=== PATIENT | female | born 1985 | race Caucasian/White ===

== ENCOUNTER 2023-07-13 08:00 | Outpatient (RCR) | payer OTHER, SELFPAY ==
--- NOTE | 2023-07-13 09:00 | BH.SGPN.GN ---
Behaviors/Verbalizations/Mental Status: [] Eye contact is good. Motor activity is appropriate. Appearance is casual. Speech is Appropriate. Mood is anxious. Affect is congruent. Thoughts are linear and logical. No evidence of psychosis. Reviewed daily check in sheet and pt reports 1/5 for suicidal thoughts and 0/5 for intent. Completed [place] Suicide Screening and risk assessment prior to group. Client Response/Progress/Benefit: [] Pt participated when prompted. Attentive. Today is pt's first day in IOP. Daily symptom tracker notes 5/5 for anxiety and 2/5 for self-harm urges. Pt briefly introduced herself to the group. Shared that she wants to learn more effective ways to manage her depressive episodes. She did not elaborate much. Limited progress noted as this was her first day in IOP. Group provided support, empathy, and gave suggestions/feedback for her first day in IOP which was beneficial. Will continue in IOP to maintain safety, increase healthy coping, and prevent decompensation. Narrative Note: []
--- NOTE | 2023-07-13 10:10 | BH.SGPN.GN ---
Behaviors/Verbalizations/Mental Status: [Patient was alert and oriented, casually dressed and groomed. Eye contact was limited, motor activity normal, speech within normal limits. Affect congruent, mood reserved. Thoughts linear, logical, no signs of hallucinations or delusions. ] Client Response/Progress/Benefit: [This is the patient?s first group and was a little reserved. However, the patient used active listening and gave feedback during group discussion when asked. Patient identified that she has scattered thoughts and tends communicate by yelling or blaming others when in a conflict. Patient worked well in her group and identified the communication style they were assigned and shared she thinks she uses two specific styles. Patient stated she believes she is mainly passive because she is very caring, people walk on her, and she does not like confrontation. Patient said she can also be passive aggressive because she does not like [id number] confrontation but will go to someone else to talk about her feelings. She shared that she doesn?t communicate her feelings well and gets frustrated by this. Patient appeared to benefit from increasing awareness on each communication style and learning which ones she connected with. Patient will continue IOP treatment to help define and maintain safety. ] Narrative Note: []
--- NOTE | 2023-07-13 11:05 | BH.SGPN.GN ---
Behaviors/Verbalizations/Mental Status: []Pt alert and oriented, neatly dressed and groomed. Eye contact good. Motor activity appropriate. Speech within normal limits. Affect congruent, mood anxious. Thoughts linear, logical, no signs of hallucinations or delusions. Client Response/Progress/Benefit: [] Pt responded well to session AEB Pt listening attentively to others and providing input during group discussion on the pay offs and costs of the different communication styles. Pt able to connect how current communication style impacts mental health. Pt engaged in activity, but was more passive, which is not uncommon on a first day. Connected with peers comments about importance of using assertive communication. Pt reported she wants to work on being respectful to others but still not letting people ?walk on top of me.? Pt seemed to benefit from increasing awareness of healthy strategies to improve communication. Will continue IOP tx to prevent decompensation, improve daily functioning, and maintain safety. Narrative Note: []
--- NOTE | 2023-07-13 11:43 | BH.COMM ---
Communication Note Communication with Client Communication Note: Met with pt to complete initial paperwork and administer the CSSR-S and risk assessment. No significant changes since admission. Pt is high risk per the CSSR-S as pt has had multiple suicide attempts in her lifetime and reports having thoughts suicide with methods in the past month. Pt denies any active SI today and shared she is doing ?a little bit better.? Pt reports willingness to bring in her extra medications and therapist will deactivate them. Pt has history of ?a lot? of suicide attempts in her lifetime including attempts by overdose and by cutting. Pt also self-harms as a way to get emotional release, but pt has not self-harmed since January. Pt also reports writing suicide notes, collecting pills, and history of self-harm by hitting herself. Pt reports ability to control her thoughts with less difficulty now and ability to maintain safety. No active SI today. Reviewed case with Dr. Dodd and pt will be admitted to [facility] level of care with a diagnosis of Bipolar I disorder, most recent episode depressed F31.4.
--- NOTE | 2023-07-13 14:41 | BH.MTP_ITS ---
[facility] Treatment Plan Patient Information Program Physician:: Dr. Sophia Dodd Primary Therapist:: Fabi SILVA Psychiatric Diagnoses Psychiatric Diagnoses:: Bipolar 1 disorder, most recent episode depression, severe without psychosis F 31.4; Generalized anxiety disorder; Cluster B traits; ADHD; History of PTSD; Alcohol use disorder in full remission for 6 years Diagnosis Code(s):: F 31.4 Estimated LOS Estimated LOS (in weeks):: 6 Problem/Goal #1 Problem/Goal #1 Stated Goal:: Pt will increase mood stability by reducing hopelessness, worthlessness, guilt, and suicidal ideations. Description of Barriers: Pt has history of multiple suicide attempts that have been highly lethal. Pt had a miscarriage about six months ago and since then pt has been engaging in risky sexual behavior, having more suicidal ideations, and reports constant triggers of grief. Pt also has history of self-harm by cutting and pulling out hair, but has not self-harmed in over three months. Functional Impact: Pt is a 37-year-old female with a history of Bipolar I d isorder, TORSTEN, and alcohol use disorder in full remission. Pt was referred to [facility] tx by her outpatient psychiatrist, Dr. Limon, due to worsening depression with fleeting SI. Pt reports having fleeting SI with thoughts of methods, but pt shared I typically always reach out. Pt reports decompensation for the past several months, but has had mental health struggles for years. Currently endorses a depressed mood, decreased appetite, decreased sleep, low energy, anhedonia, hopelessness, and worthlessness. Pt also reports constant anxiety, grief, and more impulsive behaviors. Pt's mental health symptoms are currently impacting her overall functioning and relationships. Pt not currently benefitting from traditional outpatient counseling alone. Goal Relevant Strengths/Supports: Pt is active in AA and has a sponsor she meets with weekly. Pt has been sober for 6 years. Pt lives with her parents who pt is close with and pt has several good friends she can talk to. Pt is connected with outpatient psychiatry and counseling. Objectives Objective #1: Stated Objective: Pt will learn and utilize 2-3 healthy coping strategies to better manage depressive symptoms and reduce suicidal ideations as shown by a decrease of DMS-5 symptoms for depression and SI. Interventions: Through group and individual sessions, therapist will help pt identify triggers and warning signs of depression and guilt including emotional, physical, and behavioral changes. Therapist will teach pt various coping skills to manage symptoms and give pt tangible resources to use to regulate emotions. Therapist will use cognitive restructuring techniques and help pt gain awareness of negative thoughts that reinforce guilt and depression. Therapist will provide psychoeducation on maintenance cycles and help pt learn ways to break unhealthy maintenance cycles. Therapist will help pt incorporate behavioral activation and assist pt in setting SMART goals. Discharge Criteria: Pt will have met this goal when can report learning and using at least 2 coping skills to manage depressive symptoms and reduce isolation. Additionally, pt will have met this goal when pt's DSM-5 scores for depression decrease. Target Date: 08/24/23 Review Date: 08/03/23 Status: open Objective #2: Stated Objective: Pt will identify 2 triggers and 2 coping skills to use when pt experiences mood dysregulation and has increased urges to engage in unhealthy, impulsive coping skills. Interventions: Through individual and group counseling pt will be provided with education on healthy coping skills to manage mood symptoms, impulse, and crisis behaviors. Therapist will provide information on healthy alternatives to emotion release. Individual therapist will teach pt DBT techniques to increase emotional regulation and mindfulness. Therapist will also engage pt to use self- compassion while working to change behaviors. Discharge Criteria: pt will have accomplished this goal when pt can identify at least 2 triggers and 2 coping skills to increase mood stability and reduce unhealthy action urges. Target Date: 08/24/23 Review Date: 08/03/23 Status: open Problem/Goal #2 Problem/Goal #2 Stated Goal:: Will reduce impulsivity and anxiety through increasing emotional regulation and distress tolerance skills Description of Barriers: Pt has history of multiple suicide attempts that have b een highly lethal. Pt had a miscarriage about six months ago and since then pt has been engaging in risky sexual behavior, having more suicidal ideations, and reports constant triggers of grief. Pt also has history of self-harm by cutting and pulling out hair, but has not self-harmed in over three months. Functional Impact: Pt is a 37-year-old female with a history of Bipolar I disorder, TORSTEN, and alcohol use disorder in full remission. Pt was referred to [facility] tx by her outpatient psychiatrist, Dr. Limon, due to worsening depression with fleeting SI. Pt reports having fleeting SI with thoughts of methods, but pt shared I typically always reach out. Pt reports decompensation for the past several months, but has had mental health struggles for years. Currently endors es a depressed mood, decreased appetite, decreased sleep, low energy, anhedonia, hopelessness, and worthlessness. Pt also reports constant anxiety, grief, and more impulsive behaviors. Pt's mental health symptoms are currently impacting her overall functioning and relationships. Pt not currently benefitting from traditional outpatient counseling alone. Goal Relevant Strengths/Supports: Pt is active in AA and has a sponsor she meets with weekly. Pt has been sober for 6 years. Pt lives with her parents who pt is close with and pt has several good friends she can talk to. Pt is connected with outpatient psychiatry and counseling. Objectives Objective #1: Stated Objective: Pt will identify 2-3 anxiety triggers and 2 coping skills to use when feeling anxious to manage anxiety as shown by reducing DSM-5 scores for anxiety. Interventions: Therapist will provide education on anxiety, avoidance behaviors, and maintenance cycles. Therapist will help pt explore personal symptoms and warning signs of anxiety. Therapist will teach pt coping skills to improve emotional regulation, mindfulness, and distress tolerance to help pt cope with anxiety in the moment. Discharge Criteria: Pt will have accomplished this goal when she can identify at least 2 triggers and report using 2 coping skills to manage anxiety. Additionally, pt will have accomplished this goal AEB reduction of DSM-5 scores for anxiety. Target Date: 08/24/23 Review Date: 08/03/23 Status: open Objective #2: Stated Objective: pt will identify 2-3 cognitive distortions that lead to rumination and learn 2-3 ways to manage these thoughts to better manage anxiety. Interventions: Therapist will provide education on the most common cognitive distortions and teach pt the connection between thoughts, emotions, and feelings. Therapist will assist pt in identifying, challenging, and replacing dysfunctional thoughts with positive, more realistic thoughts. Therapist will use CBT and DBT techniques to help pt gain awareness of thinking errors and learn how to more effectively handle negative thoughts. Discharge Criteria: Pt will have accomplished this goal when can identify at least 2 cognitive distortions and at least 2 coping skills to manage negative thoughts. Target Date: 08/24/23 Review Date: 08/03/23 Status: open
--- NOTE | 2023-07-14 09:00 | BH.SGPN.GN ---
Behaviors/Verbalizations/Mental Status: [] Eye contact is fair. Motor activity is appropriate. Appearance is casual. Speech is Appropriate. Mood is anxious. Affect is constricted. Thoughts are linear and logical. No evidence of psychosis. Reviewed daily check in sheet and no reports of suicidal ideations or intent. Client Response/Progress/Benefit: [] Pt participated at times during the group discussion. Attentive. Client reported mental health positive as coming to IOP program. Client reported additional mental health win as being able to sleep in and rest, which she noted has been a struggle for her. Client identified stressor as taking time to work on herself. Progress noted. Benefited from group support, encouragement, and feedback. Will continue in IOP to prevent decompensation, stabilize mood, and increase healthy coping.
--- NOTE | 2023-07-14 09:00 | BH.SGPN.GN ---
Behaviors/Verbalizations/Mental Status: [Patient was alert and oriented, casually dressed and groomed. Eye contact was good, motor activity normal, speech within normal limits. Affect congruent, mood content. Thoughts linear, logical, no signs of hallucinations or delusions. Reviewed Patients symptom tracker and all categories within normal limits.] Client Response/Progress/Benefit: [Patient was engaged and open to the discussion. Patient reports her mood to be ?anxious?. Patient stated her first win was coming to the program and starting it. She reports she is feeling a little anxiety from it. A second win was that she got to sleep in today. She normally wakes up at 4:30 for work. Patient?s stressor is that because she is attending the program, she is missing 3 days of work every week. Patient said this puts a stress on her funds because her FMLA was approved but she is not getting paid. Patient reminds herself that she really thinks she needs the program so it will be worth it. Patient quiet and respectful in group and actively listened to other group members talk about their mental wins and stressors. Patient benefited from the discussion by listening to feedback. Patient will continue with IOP treatment to help develop healthy skills, promote mood stability, and improve distress tolerance.] Narrative Note: []
--- NOTE | 2023-07-14 10:15 | BH.SGPN.GN ---
Behaviors/Verbalizations/Mental Status: [] Eye contact is good. Motor activity is appropriate. Appearance is casual. Speech is Appropriate. Mood is depressed. Affect is congruent. Thoughts are linear and logical. No evidence of psychosis. Client Response/Progress/Benefit: [] Pt did not participate in group discussions. Attentive during psychoeducation. Attentive during group discussion on types of support, benefits of support, and obstacles to utilizing support. Pt reports their primary supports are her psychiatrist, therapist, AA, mu-ism, friends, family, and her pets. Also able to verbalize obstacles that tool procurement coordinator the way to utilizing support. Participated in experiential activity and was able to connect this activity to group topic. Benefited from increased awareness of the benefits and importance of maintaining a balanced support system. Will continue in IOP to prevent decompensation, stabilize mood,maintain safety, and increase healthy coping skills. Narrative Note: []
--- NOTE | 2023-07-14 11:17 | BH.SGPN.GN ---
Behaviors/Verbalizations/Mental Status: []Client alert and oriented, casually dressed and groomed. Eye contact good. Motor activity appropriate. Speech within normal limits. Affect congruent, mood depressed and anxious. Thoughts linear, logical, no signs of hallucinations or delusions. Client Response/Progress/Benefit: [] Client was an active participant throughout AEB contributing to small group discussion, participating in the activity, and taking notes. Client provided input during discussion on the types of support our supports can provide. Able to identify the types of supports provided by current support system. Client reported gaining awareness that they could benefit from more emotional supports. Shared this will help to feel more needed by supports, increase comfort levels and feel connected. Client identified steps to achieve this as challenging herself to reach out and communicate more openly with supports. Client seemed to benefit from identifying the types of support and areas client could benefit from improving. Pt recommended to continue IOP tx to improve mood management, promote healthy coping skill application, and increase engagement with supports. Narrative Note: []
== END 2023-07-15 23:59 ==
LOC: BHIOP 08:00
PROVIDERS: Referring Provider Psychiatry & Neurology Psychiatry; Visit Provider Psychiatry & Neurology Psychiatry
DX: F31.4 Bipolar disorder, current episode depressed, severe, without psychotic features (principal); F41.1 Generalized anxiety disorder; F90.9 Attention-deficit hyperactivity disorder, unspecified type; F43.10 Post-traumatic stress disorder, unspecified; F10.91 Alcohol use, unspecified, in remission
CPT/HCPCS: S9480; 90853

== ENCOUNTER 2023-07-17 09:20 | Outpatient (RCR) | payer OTHER, SELFPAY ==
--- NOTE | 2023-07-19 09:00 | BH.SGPN.GN ---
Behaviors/Verbalizations/Mental Status: [] Pt alert and oriented, neatly dressed and groomed. Eye contact good. Motor activity appropriate. Speech within normal limits. Affect flat, mood depressed. Thoughts linear, logical, no signs of hallucinations or delusions. Reviewed pt?s symptom tracker, no risk for suicidal ideation, plan, or intent 07/19/23 Client Response/Progress/Benefit: []Pt responded somewhat well to session, quiet, but attentive and listening to peers. Pt reports feeling down this morning, but pt declined to share about her stressors and triggers. Pt also struggled with identifying her mental health wins today, but pt shared getting to IOP and doing some yard work were mental health wins. Pt appeared to benefit from group feedback and encouragement. Pt will continue IOP tx to prevent decompensation, reduce negative thinking patterns, and improve daily functioning. Narrative Note: []
--- NOTE | 2023-07-19 10:20 | BH.NA_ITS ---
Physical Data Vital Signs Pulse Rate: 95 Blood Pressure: 148/100 Height/Weight Height: 1.57 m Weight:: 90.718 kg Weight in Pounds: 200.0 lbs Current Medication Compliance Medication Compliance Do you take your medication as prescribed?: Yes Nutritional History Appetite Nutritional Instructions: Describe your appetite:: Good Additional nutritional information:: Client denies change in appetite and denies weight change. Functional Assessment Sleep Pattern Describe any problems with sleeping: Client states she sleeps between 6-8 hours per day. Sensory/Communication Assess Communication Problems Do you have difficulty understanding what people are saying?: No Medical Problems/History Metabolic Conditions Metabolic: Diabetes (type 2, last A1C 6.5) Additional History Additional comments:: ADHD, bipolar disorder Surgical History Surgical History Have you had any surgeries? If so, list type and date:: Yes (D&C) Substance Abuse Substance Abuse Please describe substance abuse in the last 30 days:: Client states she has been sober from alcohol use for 6 years. Client states she has been a cigarette smoker since age 15 and smokes about 1 pack per day. Client states she has had some substance use in the past, but denies current. Client reports drinking energy drinks almost daily, usually only 1 per day but up to 2 per day. Client states she has discussed this with her doctor and she is allowed to have 2 per day. Client states she used to drink 4-5 energy drinks per day at times. Client states if she doesn't have an energy drink, she will occasionally have coffee. Mental Status Summary Mental Status Significant Findings/Observations on Appearance and Mood:: Client is alert and oriented x 4. Client is casually groomed with good hygiene. Client is cooperative with assessment. Client makes fair eye contact. Client's voice has normal rate and volume. Client has somewhat flat affect at times, and pauses before responding to many questions. Client makes logical associations. Client denies delusions/hallucinations. Client states she has been having some SI, stating this time of the month directly after her menses she usually feels more depressed. Client denies intent/plan. Suicide Assessment Suicidal Ideation Are you currently or have you been suicidal in the past?: Yes Suicidal Intentional Rating Scale (SIRS): Suicidal thoughts (past) (client states she does have frequent SI, but denies SI this day) Physician Notification Past Psychiatric History MH Treatment Hx Past Psychiatric Medications:: Abilify, Wellbutrin (made SI worse), Remeron, Pristiq, Zoloft, others Age of first mental health symptoms: Client states she was first on Zoloft for depression around age 16-17. Client states she was diagnosed as bipolar about a year ago. Describe (age, circumstance, etc) any past hospitalizations: Most recent at [facility] in [place] with SI after a miscarriage. Client has had 2 other hospitalizations prior. Client states she has had several suicide attempts in the past, the last being an OD attempt in 2017. Current providers for mental health treatment (counselor, psychiatrist, residential case manager, etc.): Dr. Limon at [place] [id number] for psychiatry, Dr. Alejandrina Bravo for psychologist Fall Risk Assessment Age Age: Less than 60 Mental Status Mental Status: Willing & able to ask for assistance when needed Physical Status Physical Status: No problems Impairments Impairments: None Elimination Elimination: Continent AND independent Gait or Balance Gait or Balance: Walks independently Hx of Falls History of falls in the past 6 months: No known history Medications/Substances Psychotropics:: Antidepressants, Antipsychotics and Mood stabilizers Medications/substances used within the past 24 hours or ordered to administer: 3 or more of the medications/substances listed above Total Score Total Points:: 2 RN Summary of Impressions Impressions Recommendations Impressions: Psychiatric Issues: 1. Bipolar 1 disorder, most recent episode depression, severe without psychosis 2. Generalized anxiety disorder 3. Cluster B traits 4. ADHD 5. History of PTSD 6. Alcohol use disorder in full remission for 6 years 7. Financial and primary support issues Level of Care How do the client's current symptoms and functional deficits support need for this level of care?: Client was referred to IOP by outpatient psychiatrist after client called the [facility] line on 06/23 with SI. Client states I chose to come here instead of being hospitalized again. Client states she has had frequent SI since she had a miscarriage about 6 months ago. Client states she has periods of darius and depression, stating the last time she had darius was May. Client states she has been so anxious that she has been pulling out pieces of her hair on a daily basis. Client reports feeling more depressed the week after her menses, which she states is this week. Client denies SI this day, but states she does have SI frequently. Denies plan/intent. IOP will promote gains and prevent further decompensation while providing social support and skills training.
[2023-07-19 10:46] VITALS: BP 148/100; PULSE 95
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
--- NOTE | 2023-07-19 13:16 | BH.DR.ITP ---
Initial Treatment Plan Patient Information Visit Information: ADMISSION DATE: EXPECTED LOS: 4-6 weeks Problems/Symptoms Problem #1:: Depression Symptom:: Sadness, hopelessness, worthlessness, anhedonia, low energy, decreased concentration, guilt, passive thoughts of , passive suicidal ideation Problem #2:: Anxiety Symptom:: Rumination, worry, avoidance
--- NOTE | 2023-07-19 15:44 | BH.MDN_ITS ---
Multi-Disciplinary Note Note 45-min Individual: Time Started:: 11:30 Date: 07/19/23 Purpose of session/treatment goals addressed:: To gather information on pt's current stressors, symptoms, triggers, and tx goals. Another goal was to build rapport and provide emotional support. Eye Contact:: Fair Motor Activity:: Appropriate Appearance:: Neat Speech:: Soft Mood:: Depressed Affect:: Flat Thoughts:: Linear, Logical and No evidence of hallucinations/delusions noted Staff Interventions:: CBT techniques, mindfulness skills, rapport building, strengths perspective, treatment planning, completed risk assessment / safety planning and other (provided emotional support) Client Response:: Pt responded well to session, open to meeting with therapist. Pt reports that she has been in therapy in the past and is currently seeing a therapist which pt finds helpful. Pt stated she has struggled with her mental health for years, but pt had a miscarriage several months ago and this triggered severe depression and suicidal ideations. Pt stated that not many people know about her , but her mother does. Pt does not speak with the father of the baby and since then, pt has been having sex with random men to fill a void. Pt stated that she has a hard time when she sees woman or hears about people. Pt shared she is very depressed, but pt has not been able to cry. Pt reported my outpatient therapist thinks I should do EMDR just to cry. Pt denies that the loss has increased urges to drink and pt maintains her sobriety. Pt is active in AA and has a sponsor she is close to. Pt also has several good friends she can talk to when she gets down. Pt shared when she gets suicidal or really depressed she will reach out. Pt also writes poetry and shared a poem with therapist. Talked about how writing can be a healthy copi ng skill, but to also remember that sometimes skills can reinforce depression or anxiety, so it is good to mix it up. Pt shared this is true for music, sometimes it helps to listen to sad songs, but there are times when it makes pt more depressed. Discussed coming up with a playlist to help pt cope with depression and to begin keeping tack of her wins through writing. Pt was receptive to these and willing to try for homework. Risks/Concerns:: Pt reports chronic suicidal ideations for years, but denies any active SI to date. Pt does admit to passive SI with thoughts of methods. Pt has removed the extra medications she had in her home and pt reports ability to keep herself safe. Pt shared she does tend to become more suicidal around her period and has been diagnosed with PMDD. Pt is future oriented today. Progress Toward Goals/Plan:: Pt's first week of IOP tx. Pt reports benefitting from the group setting so far, but pt's symptoms are unchanged. Pt reports her biggest stressor is that she had a miscarriage 6-7 months ago and pt still feels stuck. Pt has been engaging in risky sexual behavior, has in creased suicidal ideations, and reports shutting down her emotions to the point where pt has not cried. Pt endorses isolation, negative thinking patterns, and chronic SI. Pt will continue IOP tx to prevent decompensation, maintain safety, and gain healthy coping skills. Time Stopped:: 12:23
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
--- NOTE | 2023-07-20 10:10 | BH.SGPN.GN ---
Behaviors/Verbalizations/Mental Status: [] Eye contact is good. Motor activity is appropriate. Appearance is casual. Speech is Appropriate. Mood is anxious and dysthymic. Affect is congruent. Thoughts are linear and logical. No evidence of psychosis. Client Response/Progress/Benefit: [] Client was an attentive during interactive group discussions by writing notes and sharing when prompted. Attentive during psychoeducation on the six types of boundaries (physical, emotional, intellectual, sexual, time, and material) AEB note-taking. Along with peers contributed to interactive discussion on defining what a boundary is in mental health. Client along with peers identified challenges to setting boundaries which included; fear of other's response, guilt, fear of losing relationships, and not knowing how to. Client along with peers identified the benefits to setting boundaries. Client shared she struggles with setting boundaries because she feels guilty and doesn't want to hurt someone's feelings. Client benefited from increased awareness and insight on the importance/benefit to setting healthy boundaries. Will continue in IOP to improve daily functioning, increase healthy coping and reduce high-risk behaviors, and prevent decompensation. Narrative Note: []
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
--- NOTE | 2023-07-21 11:15 | BH.SGPN.GN ---
Behaviors/Verbalizations/Mental Status: []Pt alert and oriented, casually dressed and groomed. Eye contact good. Motor activity appropriate. Speech within normal limits. Affect congruent, mood anxious and depressed. Thoughts linear, logical, no signs of hallucinations or delusions. Client Response/Progress/Benefit: []Pt was an active participant in group discussions and experiential activity. Was able to identify the connection between the experimental activity and utilization of stress management skills. Pt reported feeling at times frustrated during the activity but did well to use breathing and thought challenging to manage her emotions. Attentive during psychoeducation on the 4 A's (Avoid, adapt, alter, accept) of coping with stress as well as strategies to identify stressors in which one has no control, little control, or a great deal of control over. Pt shared plans to utilize the skill of accept to begin to better manage her mental health sx and fell less hopeless regarding her ability to do so. Benefited from increased awareness of stress management strategies. Will continue in IOP to prevent decompensation, improve mood stability, and increase self-care. Narrative Note: []
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
--- NOTE | 2023-07-26 09:00 | BH.SGPN.GN ---
Behaviors/Verbalizations/Mental Status: [Patient was alert and oriented, casually dressed and groomed. Eye contact was good, motor activity normal, speech within normal limits. Affect congruent, mood anxious. Thoughts linear, logical, no signs of hallucinations or delusions. Reviewed Patients symptom tracker and the patient reports severe in anxiety/panic attacks, moderate to severe in depressed mood, agitation/irritability/anger, self-harm urges, and thoughts of suicide. The patient reported no symptoms of risk of suicide. This is above average for the patient and a therapist will follow up with this patient to ensure safety.??] Client Response/Progress/Benefit: [ Patient was engaged and open to the discussion. Patients mood is ?Anxious?. Patients first win was that she got to group without using the GPS to guide her. Going to places that she is unfamiliar with causes anxiety so that?s why this is a win. The second win is that on Monday she went to an AA meeting where she told her story to a group of people although she was nervous. The stressor was that on Monday she had a bad day at work and it ?ruined her day?. When asked how she coped with these emotions, she stated she did not and is still stuck in the ?muck? of it.?Patient was interactive and respectful with other group members about their mental wins and stressors. Patient benefited from the discussion by listening to feedback and giving input on her peer?s stressors and mental health wins. Patient will continue with IOP treatment to help develop healthy skills, promote mood stability, and improve distress tolerance.] Narrative Note: []
--- NOTE | 2023-07-26 10:10 | BH.SGPN.GN ---
Behaviors/Verbalizations/Mental Status: [] Eye contact is good. Motor activity is appropriate. Appearance is casual. Speech is Appropriate. Mood is depressed/irritable. Affect is flat. Thoughts are linear and logical. No evidence of psychosis. Client Response/Progress/Benefit: [] Pt was an active participant during group discussions and group activities. Attentive during psychoeducation. Engaged during activity in which they identified which type of foods (i.e. carbs, sugar, salt, fast food, caffeine, etc) they seek out when sad, tired, angry, rushed, anxious, etc. Pt was able to identify the impact that certain foods have on their mental health through group example which was beneficial. Increased awareness of the connection between nutrition and mental health. Will continue in IOP to prevent decompensation, maintain safety, and increase healthy coping. Narrative Note: []
--- NOTE | 2023-07-26 11:10 | BH.SGPN.GN ---
Behaviors/Verbalizations/Mental Status: []Pt alert and oriented, neatly dressed and groomed. Eye contact good. Motor activity appropriate. Speech within normal limits. Affect flat, mood depressed. Thoughts linear, logical, no signs of hallucinations or delusions. Client Response/Progress/Benefit: []Pt was an active participant throughout AEB contributing to group discussion and taking notes. Pt provided input during small group discussion on strategies to combat each factor maintaining adverse nutritional cycles. Worked with group to identify ways to foster more mindful nutritional choices. Each group participant identified one small step they could take today to begin establishing mental wellness promoting nutritional choices. Pt shared plans to?reduce her caffeine intake as pt learned today that caffeine can trigger darius. Appeared to benefit from gaining insight into mental wellness centered nutrition and identifying personal steps Pt can take to support own nutritional psychology. Recommended continued IOP tx to prevent decompensation, increase distress tolerance skills, and reduce use of unhealthy coping skills. ? Narrative Note: []
--- NOTE | 2023-07-26 15:11 | BH.MDN_ITS ---
Multi-Disciplinary Note Note 60-min Individual: Time Started:: 12:10 Date: 07/26/23 Purpose of session/treatment goals addressed:: To work on goal #1 of pt's tx plan, focusing on reducing use of unhealthy coping skills. Eye Contact:: Good Motor Activity:: Appropriate Appearance:: Casual Speech:: Soft Mood:: Anxious and Depressed Affect:: Flat Thoughts:: Linear, Logical and No evidence of hallucinations/delusions noted Staff Interventions:: thought challenging, psychoeducation on:, CBT techniques, mindfulness skills, strengths perspective and taught coping skills (Delay, distract, decide) Client Response:: Pt responded well to session, open to meeting with therapist. Pt shared that she is struggling today with increased urges to engage in risky sexual behaviors. Pt shared that she has slept with nine men in the past few weeks and all of these men she meets online. Pt shared she knows that this is dangerous, but pt stated she does not always care about how dangerous it is. Pt acknowledged that although her increased urges to engage in sexual behavior is part of her darius, pt also admits that she does this to fill a void. Pt stated that when she is with men she does not have to think about her loss and pt can feel immediate gratification. Pt shared that she also struggles the most at night because that is when pt starts to ruminate and feel depressed. Night is when pt goes on to the website where she finds men to acupressurist with. Pt has insight that her sexual behaviors ends up reinforcing shame, depression, and negative self-talk. Pt shared I know it's not right and it goes against what I believe. Pt does well when paralleling her sobriety to learning healthier coping skills to manage emotions and mental health symptoms. Pt learned the coping skill delay, distract, decide and processed how this could help pt reduce risky sexual behaviors. Pt feels that when she gets an urge to contact a man she will delay herself for two hours, distract herself with either her dog or spending time with her mother. After this pt can decide what she wants to do and pt can always repeat the process. Pt was encouraged to step away from her phone for that time as well because having her phone on her increases the likelihood that pt will contact someone. Also reviewed pros and cons of engaging in risky sexual behaviors vs. not engaging. Risks/Concerns:: Pt denies any active SI, plan, or intent as of 07/26/23. Pt has chronic suicidal ideations that increase in intensity during pt's menstrual cycle per her report. Pt reports ability to maintain safety. Risk noted in pt's report of increased urges to engage in risky sexual behaviors. Discussed safe sex. Progress Toward Goals/Plan:: Progress noted in pt's consistent attendance, but overall pt's symptoms have not decreased since admission. Pt reports current symptoms of darius including reduced sleep, increased risky sexual activity, and poor impulse control. Pt stated she is worried that she will crash hard after this episode which is typically what happens. Pt also endorses negative self- talk, isolation, and shame. Pt willing to practice skills discussed in session. Pt understands that therapist will be out of the office for two days and pt can reach out to one of the other IOP therapists if needed. Pt will continue IOP tx to prevent decompensation, increase distress tolerance skills, and improve mood stability. Time Stopped:: 13:05
--- NOTE | 2023-07-27 09:00 | BH.SGPN.GN ---
Behaviors/Verbalizations/Mental Status: [] Eye contact is good. Motor activity is appropriate. Appearance is casual. Speech is Appropriate. Mood is depressed/irritable. Affect is flat. Thoughts are linear and logical. No evidence of psychosis. Reviewed daily check in sheet and pt reports 4/10 for suicidal thoughts and 0/5 for intent. (Baseline). Client Response/Progress/Benefit: [] Pt participated when prompted. Attentive. Daily symptom tracker notes 4/5 for anxiety and 3/5 for depression,irritability, and self-harm urges (these scores are baseline for patient). Emotion is exhausted. Pt states I feel slightly better than yesterday. Unable to identify any possible causes to her improved mood. Future- oriented as she is looking forward to seeing her aunt this afternoon. Stressors related to finances and poor sleep. She reports poor sleep in the past few days which has been impacting her energy and motivation. Progress noted per pt report of feeling slightly better. Benefited from group support, encouragement, and feedback. Will continue in IOP to maintain safety, prevent decompensation, and increase healthy coping skills. Narrative Note: []
--- NOTE | 2023-07-27 09:47 | BH.MDN_ITS ---
Multi-Disciplinary Note Note 30-min Individual: Time Started:: 11:46 Date: 07/27/23 Purpose of session/treatment goals addressed:: Purpose of session was to discuss pt concerns regarding increased self-harm urges and create a coping plan for the afternoon. Eye Contact:: Good Motor Activity:: Appropriate Appearance:: Neat and Casual Speech:: Appropriate Mood:: Anxious, Irritable and Depressed Affect:: Congruent Thoughts:: Linear, Logical and No evidence of hallucinations/delusions noted Staff Interventions:: thought challenging, motivational interviewing, CBT techniques, strengths perspective and completed risk assessment / safety planning Client Response:: Pt requested to meet with this therapist as her usual individual counselor is out of the office today. Pt reports that she has been struggling with increased self-harming urges and does not know what to do. Denies any active SI, plan, or intent. Does admit to passive thoughts of ?it would be easier if I weren?t alive?, but shared that she does not want to . Shared that she and her sponsor through AA had agreed that engaging in self- harming behavior would also be considered a relapse and pt does not want to risk ?messing with my sobriety date?. Went on to discuss that for the past several months, since her miscarriage, she has been trying to find different means of numbing herself. Pt reports she often uses sex with anonymous men as a means of self-medicating/numbing her pain. Pt receptive of working with this therapist to establish a coping plan for the evening to prevent engaging in maladaptive coping behaviors. Pt reports that she can contact her sponsor and promise not to cut, as pt reports she would never break a promise to her sponsor. Shared that she is also scheduled to chair an AA meeting at 7pm and has plans to visit with her aunt prior to this which will serve as healthy distractions for her. Noted that she has some concern she will struggle at night and become tempted to contact someone for sex. Discussed harms reduction and pt shared she and her regular IOP therapist had created a goal of pt waiting 15 minutes before acting when urges to contact someone arise. Pt shared willingness to practice this. Additionally, pt identified plans to take a bath and read after her meeting to prevent the likelihood she leaves the house as well. Pt agreeable to these steps. She did disclose access to several pocket knives which she had used to self-harm in the past. Reports willingness to put these in a box in the attic to prevent likelihood of access as pt unwilling to dispose of the knives altogether. Pt agreeable to contact crisis resources should she feel unable to maintain safety at any time. Will follow-up to discuss plan for safety over the weekend. Risks/Concerns:: Reports increased self-harming urges and passive thoughts of ; however denies any active SI, plan, or intent. Willing to create a coping plan for the evening and willing to remove knives from the immediate vicinity to reduce risk. Protective factors noted. Pt reports ability to maintain safety at this time and is willing to contact local crisis resources if unable to maintain safety at anytime. Progress Toward Goals/Plan:: Recent decompensation in symptoms as evidenced by client reporting increased depression, anxiety, and self-harming urges. Client reports limited sleep last night which she believes s impacting focus and ability to effectively regulate her emotions. Client created plan of action for today to ensure safety and reduce self-harm risk. Has identified several supports she can reach out to if her thoughts were to worsen. Has hx of reaching out to her outpatient providers when in need of help. Client to continue IOP to maintain safety, increase distress tolerance, and prevent decompensation. Time Stopped:: 12:15
--- NOTE | 2023-07-27 10:05 | BH.SGPN.GN ---
Behaviors/Verbalizations/Mental Status: [] Eye contact is good. Motor activity is appropriate. Appearance is casual. Speech is Appropriate. Mood is depressed and anxious. Affect is flat. Thoughts are linear and logical. No evidence of psychosis. Client Response/Progress/Benefit: [] Client connected with topic of Anxiety AEB appearing attentive and taking notes. Client, however, did not want personal experiences with group and minimally provided input. Attentive during psychoeducation on different anxiety disorders and participated throughout interactive discussion defining anxiety and identifying cognitive and physiological symptoms of anxiety. Common physical and cognitive symptoms identified by group included: ?what if thoughts?, ?fear of failure?, negative self-talk, feeling nauseous, shaky, and hot. Benefited from increased awareness and insight on anxiety and its impact. Plan is to continue in IOP to increase overall functioning, increase emotional regulation skills, and prevent decompensation. Narrative Note: []
--- NOTE | 2023-07-28 09:00 | BH.SGPN.GN ---
Behaviors/Verbalizations/Mental Status: [ Patient was alert and oriented, appropriately dressed and groomed. Eye contact was poor, motor activity normal, speech within normal limits. Unable to determine thoughts, mood, or signs of delusions or hallucinations because the client declined to share. Reviewed Patients symptom tracker and the patient reports severe in depressed mood, anxiety/panic attacks, self-harm urges, and low to moderate in agitation/irritability/anger and thoughts of suicide. Patient rated themselves as low for risk of suicide. The therapist will check in with this patient to ensure safety.] Client Response/Progress/Benefit: [ Patient declined to participate in group. This is unusual for this patient as they normally contribute. The patient will be monitored for any additional adverse symptoms. Patient met with an induvial therapist for further assessment. Patients will continue with IOP treatment to promote mood stability, improve distress tolerance, and continue to improve functioning.] Narrative Note: []
--- NOTE | 2023-07-28 10:20 | BH.SGPN.GN ---
Behaviors/Verbalizations/Mental Status: [] Eye contact is poor. Motor activity is appropriate. Appearance is casual. Speech is Appropriate. Mood is depressed. Affect is flat. Thoughts are linear and logical. No evidence of psychosis. Client Response/Progress/Benefit: [] Pt did not participated in group discussions. Attentive AEB note taking. Participated in and was engaged during experiential activity. Attentive and engaged during as peers were able to relate activity to group topic of FOF. Attentive during discussion on what failure means to the group in which peers identified and defined failure. Group was able to identify impact of fear of failure on mental health. Attentive during interactive discussion on the role that FOF plays in mental wellness, depression, anxiety, and growth. Benefited from increased awareness of how the role that FOF plays in mental health and decision-making. Will continue in IOP to prevent decompensation , maintain safety, and increase healthy coping. Narrative Note: []
--- NOTE | 2023-07-28 11:15 | BH.SGPN.GN ---
Behaviors/Verbalizations/Mental Status: []Pt alert and oriented, casually dressed and groomed. Eye contact good. Motor activity appropriate. Speech within normal limits. Affect congruent, mood depressed. Thoughts linear, logical, no signs of hallucinations or delusions. Client Response/Progress/Benefit: [] Pt responded well to session, engaged in the experiential activity and attentive throughout group processing. Pt reported fear of failure has kept Pt from returning to college. Pt completed fear of failure worksheet and was able to identify thoughts and behaviors that reinforce personal fear of failure including: negative thinking, pressure to meet unrealistic expectations, and avoidance. Pt participated in group discussion regarding strategies to overcome fear of failure. Identified wanting to work on starting to improve ability to identify and challenge distortions. Appeared to benefit from increased knowledge of strategies to combat fear of failure and gaining self-awareness. Pt will continue IOP tx to promote mood stability, continue to encourage thought challenging, and prevent decompensation. Narrative Note: []
--- NOTE | 2023-07-31 13:55 | BH.MDN ---
Multi-Disciplinary Note Note 30-min Individual: Time Started:: 12:05 Date: 07/28/23 Purpose of session/treatment goals addressed:: Purpose of session was to follow-up with pt regarding recent reports of increased depression and self-harming urges. Additional purpose was to establish a coping plan for the weekend. Eye Contact:: Intense Motor Activity:: Appropriate Appearance:: Neat and Casual Speech:: Appropriate Mood:: Anxious and Depressed Affect:: Congruent Thoughts:: Linear, Logical and No evidence of hallucinations/delusions noted Staff Interventions:: motivational interviewing, CBT techniques, strengths perspective and completed risk assessment / safety planning Client Response:: Pt receptive of session, actively engaged throughout. Reports doing well to follow the discussed coping plan from the previous night; however, struggled with focusing for much of the evening. Shared this may have been due to pt not taking her medication yesterday as she had come straight to [facility] from [place] where she had stayed the night. Noted difficulties concentrating and feeling disconnected and dizzy as a result. Reports her symptoms have since improved but she had difficulties coping with her thoughts the previous night as a result. Described passive thoughts of ?I?m tired of having to hang on. I?d be better off and people would be better off without me?. Denies outright thoughts of wanting to , plan, or intent. Acknowledges her thoughts were more associated with not wanting to be in emotional pain any longer. Pt described reaching out to her outpatient psychiatrist, Dr. Limon at [place] [id number], following the AA meeting pt had chaired. Noted this was helpful as pt has strong rapport with this provider and was able to calm down as a result. Pt reports her provider also started pt on [place] 600mg. Pt denies current self-harming urges of suicidal ideation at time of session. Reports ?I?m not at my breaking point? but noted wanting to create a safety/coping plan for herself for the weekend for additional reassurance. Pt identified plans to engage in several social activities such as spending Monday night with her friend and friend?s kids, Celebrating her ?[employer] Book Anniversary? of 6 years of sobriety, and volunteering for a nondenominational fall hayride on Monday. Identified several supports at each of these events she feels she can reach out to for encouragement and help if needed. Identified plans to keep in contact with her sponsor throughout the weekend as well. Pt reports not wanting to have impulsive anonymous sex if feeling emotional pain and worked with therapist to create additional barriers as harms reduction. Pt admitted that in the past when told to wait 15 minutes when having urges to act on this impulse, she would spend that time texting or perusing a [employer] website. Acknowledges that this was not aiding in reducing the urge and expressed willingness to engage in a non-related hands-on activity to distract herself during the 15-minute period instead. Pt also identified that promising her dog she would not leave him would reduce the likelihood of her doing so as she would feel too guilty. Additionally, reviewed the importance of practicing safe sex practices to prevent adverse consequences. Agreeable to this plan and willing to go to the local emergency department should she feel unable to maintain safety at any time. Pt requested a follow-up phone call to check-in on Monday. Risks/Concerns:: Pt denies any active SI, plan, or intent as of this date. Denies active self-harming urges as well. Pt does continue to endorse passive thoughts of not wanting to be alive but denies desire, plan, or intent to act on those thoughts. Pt reports motivations to live. Denies access to lethal means, and is willing to reach out to crisis resources should she need to at anytime. Therapist reviewed local crisis resources available as well. Progress Toward Goals/Plan:: Limited progress as pt continues to endorse significant depression and passive thoughts of . Pt does well to follow-through with safety plans and is able to identify several motivations to live as well. Pt self-admits to pushing my emotions down and avoiding dealing with the triggers leading to her emotional distress which will continue to impede consistent progress. Pt continues to struggle with maladaptive coping as well, which may further impede mental health tx. Recommended continued IOP tx to promote adaptive coping, improve mood stability, and prevent decompensation. Time Stopped:: 12:33
--- NOTE | 2023-08-02 09:00 | BH.SGPN.GN ---
Behaviors/Verbalizations/Mental Status: [ Patient was alert and oriented, appropriately dressed and groomed. Eye contact was good, motor activity normal, speech within normal limits. Affect congruent, mood content. Thoughts linear, logical, no signs of hallucinations or delusions. Reviewed Patients symptom tracker and the patient reports moderate in depressed mood, anxiety/panic attacks, self-harm urges, and thoughts of suicide. Patient reports low in agitation/irritability/anger and reports none for risk of suicide. ] Client Response/Progress/Benefit: [ Patient was engaged and open to the discussion. Patient reported her mood to be ?anxious?. The first win was that she finally is sleeping a normal amount and has fixed her sleep schedule. The patient believes this improved her mental health. The second win was that she is making good progress on a goal she has set up for herself. She stated she trusts her therapist?s advice and is satisfied with her progress. The stressor is that she is anticipating an event coming up and is feeling very anxious about it. Patient was interactive and respectful with other group members about their mental wins and stressors. Patient benefited from the discussion by listening to feedback and giving input on her peer?s stressors and mental health wins. Patient will continue with IOP treatment to help develop healthy skills, promote mood stability, and practice coping skills for anxiety. ] Narrative Note: []
--- NOTE | 2023-08-02 10:20 | BH.SGPN.GN ---
Behaviors/Verbalizations/Mental Status: []Pt alert and oriented, neatly dressed and groomed. Eye contact good. Motor activity appropriate. Speech within normal limits. Affect flat, mood anxious. Thoughts linear, logical, no signs of hallucinations or delusions. Client Response/Progress/Benefit: [] Pt responded well to session AEB contributing to discussion, taking notes, and listening attentively to others. Group discussed the benefits of managed anger and anger as a secondary emotion. Pt shared perspective on personal benefits of anger as motivated for change and communication. Pt completed worksheet on anger triggers and personal warning signs of anger. Pt identified their biggest triggers as being misunderstood and being rejected. Appeared to benefit from increased knowledge of the anger cycle as well as personal triggers. Will continue IOP tx to reduce negative thinking patterns, improve impulse control, and increase distress tolerance skills. ? Narrative Note: []
--- NOTE | 2023-08-02 11:15 | BH.SGPN.GN ---
Behaviors/Verbalizations/Mental Status: []Client alert and oriented, casually dressed and groomed. Eye contact fair. Motor activity appropriate. Speech within normal limits. Affect constricted, mood anxious thoughts linear, logical, no signs of hallucinations or delusions. Client Response/Progress/Benefit: []Pt was attentive throughout AEB contributing at times to small group discussion and self-reflection. Group finished processing cues to anger worksheet. Pt completed personal anger cycle. Identified triggering event, negative thoughts, emotional response, physical symptoms, and behavioral response. Pt attentive as group brainstormed healthy coping skills for better managing anger which included: problem solving, walking/exercise, taking a break, grounding tools, reflection, and journaling. Pt worked in small groups to identify healthy coping skills/strategies to manage anger. Pt identified connected with taking a break to calm down first. Pt appeared to benefit from identifying different techniques to manage anger as well as gaining awareness of potential consequences of unmanaged anger. Will continue IOP tx to improve confidence, challenge distortions, and prevent decompensation.
--- NOTE | 2023-08-02 15:28 | BH.MDN ---
Multi-Disciplinary Note Note 45-min Individual: Time Started:: 12:00 Date: 08/02/23 Purpose of session/treatment goals addressed:: To process current stressor and to work on goal #1 of pt's tx plan. Eye Contact:: Good Motor Activity:: Appropriate Appearance:: Neat Speech:: Soft Mood:: Euthymic and Anxious Affect:: Congruent Thoughts:: Linear and No evidence of hallucinations/delusions noted Staff Interventions:: thought challenging, motivational interviewing, CBT techniques, strengths perspective, taught coping skills and other (Created a coping plan for current stressor. ) Client Response:: Pt responded well to session, open to meeting with therapist and allowed IOP social work sales and marketing intern (Yael) to be present. Pt reports she is feeling highly anxious today because there is a chance that she could be . Pt has not had unprotected sex since last week, but she did prior to that. Pt stated that she has always thought a baby would give her a reason to live but pt does not think she can go through another after experiencing a traumatic miscarriage. Pt shared she feels torn and alone in her stress. Pt stated her family is very congregational and would not approve of pt being outside of marriage. Pt stated the last time she was only her mother knew. Pt shared she hopes the test is negative, but she was willing to create a coping plan in case it was positive. Pt stated if it is positive she will reach out to her best friend or her mother for support. Pt will also talk with her psychiatrist tomorrow and let her know about the potential incase medications will need changed. Therapist helped pt explore all of her options, including and adoption if pt was . Pt shared she would keep the baby if she was because that goes against her beliefs. Pt reminded that she has supports and she is not alone in her stress. Pt encouraged to practice healthy coping skills while she waits to take her test on Monday. These skills included delay, distract, and decide as well as spending time around her mother instead of isolating in her room. Risks/Concerns:: Pt denies any active SI, plan, or intent as of 08/02/23. Ongoing, chronic passive suicidal ideations. Pt reports ability to maintain safety. Progress Toward Goals/Plan:: Progress noted in pt following through with her goal from last week to reduce risky sexual behaviors. Pt reports she has not had unprotected sex since last week and pt bought condoms. Pt's biggest stressor today is that she might be . Pt reports she does not want to be and she highly anxious. Pt also endorses ruminations, lack of concentration, racing thoughts, and passive SI. Pt also reports negative self-talk and depression. Pt reports her sleep has improved this week and pt feels her medication change is helping stabilize her mood. Pt will continue IOP tx to promote mood stability, reduce impulsivity, and increase use of healthy coping skills. Time Stopped:: 12:45
--- NOTE | 2023-08-03 09:00 | BH.SGPN.GN ---
Behaviors/Verbalizations/Mental Status: [] Eye contact is good. Motor activity is appropriate. Appearance is casual. Speech is Appropriate. Mood is depressed. Affect is flat. Thoughts are linear and logical. No evidence of psychosis. Reviewed daily check in sheet and pt reports 4/10 for suicidal ideations and 0/5 for intent. At or below baseline. Client Response/Progress/Benefit: [] Pt participated at times during the group discussion. Attentive. Emotion for today is stressed. Daily symptom tracker notes 4/5 for anxiety and self-harm urges. Despite her high symptom scores she reports feeling more stable. Shared that overall her mood is less erratic. In the past few weeks she felt as if she was in a mixed state. Briefly described what darius, hypomania, and depressive episodes entail for her. She met with her outpatient psychiatrist yesterday and feels that she is working on things with her program therapist. Hopeful. Progress noted per pt report. Benefited from group support, encouragement, and feedback. Will continue in IOP to maintain safety, stabilize mood, improve functioning, and increase healthy coping. Narrative Note: []
--- NOTE | 2023-08-03 10:20 | BH.SGPN.GN ---
Behaviors/Verbalizations/Mental Status: []Pt alert and oriented, casually dressed and groomed. Eye contact good. Motor activity appropriate. Speech within normal limits, quiet. Affect congruent, mood dysthymic. Thoughts linear, logical, no signs of hallucinations or delusions. Client Response/Progress/Benefit: []Pt receptive of session, actively engaged throughout AEB taking notes, providing some input, and listening to discussion, less engaged than typical. Appeared to connect with group topic of cognitive distortions and the impact of thought patterns on mental health, coping behaviors, and relationships. Pt reports connecting with distortions of all or nothing thinking and predicting the future. Pt stated she has difficult time with challenging her perspective when something doesn't go as planned. Pt appeared to benefit from gaining insight on distorted thinking patterns and how this impacts overall mental health. Will continue IOP tx to improve mood stability, increase healthy coping, and prevent decompensation. Narrative Note: []
--- NOTE | 2023-08-03 11:15 | BH.SGPN.GN ---
Behaviors/Verbalizations/Mental Status: [] Eye contact is fair. Motor activity is within normal limits. Appearance is casual. Speech is Appropriate. Mood is dysthymic. Affect is constricted. Thoughts are linear and logical. No evidence of psychosis. Client Response/Progress/Benefit: [] Pt was an engaged participant during group discussions and activity. Pt was placed in a smaller group and participated in activity in which small groups worked together to answer questions based on identifying, challenging, and reframing cognitive distortions. Pt was engaged in the smaller group, participated in group interactions to brainstorm answers, and appeared to be comprehending cognitive distortions. Connected with others about impact distortions can have on functioning and decisions. Benefited from gaining further insight and awareness of cognitive distortions as well as practicing ways to reframe and challenge thoughts. Will continue in IOP to challenge distorted thoughts, decrease impulsivity, and prevent decompensation.
--- NOTE | 2023-08-04 09:00 | BH.SGPN.GN ---
Behaviors/Verbalizations/Mental Status: [Patient was alert and oriented, appropriately dressed and groomed. Eye contact was good, motor activity normal, speech within normal limits. Affect congruent, mood content. Thoughts linear, logical, no signs of hallucinations or delusions. Reviewed Patients symptom tracker and the patient reports moderate/severe in anxiety/panic, self-harm urges, thoughts of suicide, moderate in depressed mood, and low in agitation/irritability/anger. The patient does not report any risk of suicide. Therapist will check in with patient to ensure safety. ] Client Response/Progress/Benefit: [ Patient was engaged and open to the discussion. Patient reported her mood to be ?zoned out and tired?. Patients first win was that she got to play Chimerix with her mom. The patient said that her mom and her haven?t played a game in a while, so it was nice to do one. The patient was not able to identify a second win. The patient stated everything stressors her out but something specifically she is stressed out about is something she does not want to talk about. Patient feels like she is not very ?present? right now. Patient was interactive and respectful with other group members about their mental wins and stressors. Patient benefited from the discussion by listening to feedback and giving input on her peer?s stressors and mental health wins. Patient will continue with IOP treatment to help develop healthy skills, promote mood stability, and practice coping skills for anxiety. ] Narrative Note: []
--- NOTE | 2023-08-04 10:10 | BH.SGPN.GN ---
Behaviors/Verbalizations/Mental Status: [] Client alert and oriented, casually dressed and groomed. Eye contact good. Motor activity appropriate. Speech within normal limits. Affect flat, mood euthymic and depressed. Thoughts linear, logical, no signs of hallucinations or delusions. Client Response/Progress/Benefit: [] Client was an active participant, AEB taking notes and providing some input in group discussions and activities. Attentive during psychoeducation. Client engaged during interactive discussion in which the group defined self-care and discussed its benefits. Group discussed barriers to engaging in self-care. Client along with group identified barriers which included time, feelings of guilt, struggling with self worth, and desire to put others first. Client participated in small groups where they worked to identify common self-care ?myths?. Benefited from increased awareness of self-care, its benefits, and the consequences of not utilizing self-care strategies. Will continue IOP tx to prevent decompensation, increase overall functioning, and continue to improve mood stability. Narrative Note: []
--- NOTE | 2023-08-04 15:09 | BH.MDN_ITS ---
Multi-Disciplinary Note Note 30-min Individual: Time Started:: 11:30 Date: 08/04/23 Purpose of session/treatment goals addressed:: To process current stressors and review application of coping skills. Another goal was to identify pt's coping plan for the weekend. Eye Contact:: Good Motor Activity:: Appropriate Appearance:: Casual Speech:: Soft Mood:: Euthymic Affect:: Congruent Thoughts:: Linear, Logical and No evidence of hallucinations/delusions noted Staff Interventions:: thought challenging, CBT techniques, mindfulness skills, strengths perspective, completed risk assessment / safety planning (discussed safe sex practices), goal setting and taught coping skills Client Response:: Pt responded well to session, open to meeting with therapist. Pt reports she took a test this morning and it was negative. Pt shared she feels relief and that pt will still feel anxious until she has her period next week. Pt had an appointment with her outpatient psychiatrist yesterday and told her psychiatrist about the potential . Pt shared her psychiatrist made me promise to use protection because of my meds. Pt stated she has been practicing delay, distract, decide, and it has been going pretty well. Pt has wanted to reach out to men, but she has refrained during the week. Pt shared she does plan to meet up with a man this weekend, but pt feels this is not to fill a void or because she is manic. Pt also plans to not stay the night and to practice safe sex. Pt has a meeting this weekend and this will help hold pt accountable. Pt learned other coping she can use if she has urges to engage in any unhelpful coping skills such as mindfulness. Pt stated she does not know how to breathe to help herself feel calm. Reviewed diaphragmic breathing and encouraged pt to practice over the weekend. Pt also reminded to spend time with healthy supports and reduce isolation when she is home with her parents. Risks/Concerns:: Pt denies any active SI, plan, or intent as of 08/04/23. Pt has chronic SI, but reports it is passive. Pt reports ability to maintain safety. Progress Toward Goals/Plan:: Progress noted in pt's report of following he r coping skill plan from last week and last session. Pt has not engaged in any risky sexual behavior for about a week. Pt was concerned earlier this week that she was , but pt took a test today and it was negative. Pt's mood is more stable this week, but pt still reports increased impulsivity, ruminations, negative thinking patterns, chronic SI, and difficulty functioning at baseline. 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 Pt agrees to use protection and pt stated she knows this person. Pt encouraged to still practice DDD to increase distress tolerance skills. Pt will continue IOP tx to prevent decompensation, improve distress tolerance skills, and improve overall functioning. Time Stopped:: 12:00
--- NOTE | 2023-08-09 09:00 | BH.SGPN.GN ---
Behaviors/Verbalizations/Mental Status: [] Eye contact is good. Motor activity is appropriate. Appearance is casual. Speech is Appropriate. Mood is anxious. Affect is flat. Thoughts are linear and logical. No evidence of psychosis. Reviewed daily check in sheet and pt report 6/10 for suicidal ideations and 0/5 for intent. Baseline. Client Response/Progress/Benefit: [] Pt participated at times during the group discussion. Attentive. Daily symptom tracker notes 5/5 for anxiety and 4/5 for depression, irritability, and self-harm urges (baseline). Mental health wins included visiting a friend in the hospital. Participated in a social activity with a lot of people. which increased anxiety. I did ok. Reports feeling a little bit better. Emotion for today is anxious. Progress noted per pt report. Benefited from group support, encouragement, and feedback. Will continue in IOP to maintain safety, increase healthy coping, and stabilize mood. Narrative Note: []
--- NOTE | 2023-08-09 11:10 | BH.SGPN.GN ---
Behaviors/Verbalizations/Mental Status: []Pt alert and oriented, casually dressed, appropriately groomed. Eye contact good. Motor activity appropriate. Speech within normal limits, mostly quiet. Affect constricted, mood anxious and depressed. Thoughts linear, logical, no signs of hallucinations or delusions. Client Response/Progress/Benefit: [] Pt was engaged during discussion and willing to complete the worksheet challenging them to develop a personal SMART goal. Pt chose the goal of getting out of her bedroom at least three days this week. Pt stated this will benefit pt reducing isolation and improve emotional regulation. Pt identified barriers which included urge to isolate is strong and being scared to reach out. Identified solutions such as reaching out anyway, opposite action, and reminding herself how she feels when she isolates. Pt receptive to identifying solutions for these barriers and willing to begin working on this goal. Benefited from this group by developing a short-term SMART goal related to mental health. Will continue IOP tx to promote mood stability, reduce use of unhealthy coping skills, and improve distress tolerance skills. Narrative Note: []
--- NOTE | 2023-08-09 12:25 | PCM.BH.PN ---
Progress Note Progress Note: History of Present Illness/Interim History: The patient is a 37-year-old single female with a history of bipolar 1 disorder, anxiety, ADHD and alcohol use disorder (sober x6 years) who is seen in follow-up at the [facility] behavioral health IOP. I last saw the patient 3 weeks ago. The patient had a miscarriage in November 2022 and then had a scare in recent weeks that she was again however she found out she is not . The patient states that she was manic for about 10 days in the last 2 weeks where she had decreased sleep and was not eating for about 5 days. She also engages in risky sexual behavior with strangers especially when she is manic. She states that her darius ended less than 1 week ago and then she became mildly depressed. She denies any self-harm. She remains sad with occasional hopelessness and feels that her mood might be a little better overall now. Her energy level is okay now. She does continue to have occasional passive thoughts of and passive, fleeting suicidal ideation a few days a week. She denies plan for suicide, active suicidal ideation, homicidal ideation, hallucinations or delusions. Current Psychiatric Medications: [] Effexor XR 75 mg p.o. daily (x5 months); Lunesta 2 mg p.o. nightly; trazodone 100 mg p.o. nightly; hydroxyzine 50 mg p.o. 3 times daily; Ritalin 10 mg up to 4 times a day for ADHD; Lamictal 150 mg p.o. daily; Vraylar 4.5 mg p.o. daily (x5 weeks); lithium carbonate (ER?) 600 mg p.o. daily for about 1 week now (started by her outpatient psychiatrist) Mental Status Examination: [] The patient is a 37-year-old female who appears older than stated age and continues to dress and close that are all coordinated (today at [facility]). She is casually dressed and groomed with good hygiene. She is ambulatory with a normal gait and has no psychomotor agitation or retardation. She is cooperative during the interview but is somewhat reticent on describing her emotions. Eye contact is fair and good at times and speech is normal rate and rhythm and fluent with no pressure. Mood is mildly depressed. Affect is constricted. Thought process is organized and goal-directed. Thought content: There is evidence of passive thoughts of and passive suicidal ideation. There is no evidence of active suicidal ideation, plan for suicide, homicidal ideation, hallucinations, delusions or evidence of darius. Reality testing is intact. Judgment is intact. Insight is limited. Impulsivity is high. Diagnoses: [] 1. Bipolar 1 disorder, most recent episode mixed, severe without psychosis (F31.63) 2. Generalized anxiety disorder 3. Cluster B traits 4. ADHD 5. History of PTSD 6. Alcohol use disorder in full remission for 6 years 7. Financial and primary support issues Plan: [] The patient will continue the IOP at [facility] as the structure, support, education and group therapy will hopefully prevent worsening of the patient's symptoms which could lead to hospitalization. She felt safe during the interview and if it anytime she does not feel safe she will let us know or go to the emergency room. No medication changes were made today as they have been recently changed. The patient got blood work several days ago for the recent start on lithium by her outpatient doctor. The patient agrees to stay sober from alcohol and any other drug use. Would recommend switching the patient to a long-acting stimulant and/or decreasing the dose of the stimulant if the patient remains having frequent darius. The patient will continue to follow-up with her outpatient providers and I will see the patient in follow-up while in the IOP program.
--- NOTE | 2023-08-09 15:26 | BH.MTP_ITS ---
Treatment Plan Review Demographics Date of Admission:: 07/13/23 Date of Treatment Plan Review:: 08/09/23 Admitting Diagnoses:: Bipolar 1 disorder, most recent episode depression, severe without psychosis F 31.4; Generalized anxiety disorder; Cluster B traits; ADHD; History of PTSD; Alcohol use disorder in full remission for 6 years Current Diagnoses:: Bipolar 1 disorder, most recent episode depression, severe without psychosis F 31.4; Generalized anxiety disorder; Cluster B traits; ADHD; History of PTSD; Alcohol use disorder in full remission for 6 years Patient Status Patient's Response to Treatment:: Pt is responding well to IOP tx AEB pt's consistent attendance, report of benefitting from group support and education, and self-report of learning healthy coping skills. Pt is engaged in group s essions, but she is not always vocal in big group discussions. Pt reports medication compliance and pt does well with completing personal goals. Pt's overall DSM-5 scores did not decrease at admission, but depression has slightly decreased. Status of Current Problems and Symptoms: Pt's symptoms of anxiety have increased since admission and her overall scores have slightly increased since admission. Pt continues to struggle with mood instability, impulsivity, urges to engage in risky sexual behaviors, and negative thinking patterns. Pt's depression is decreasing, but pt reports ongoing feelings of being a burden, isolation, and passive SI. Progress Problem #1: Problem Name:: Mood instability, depression, SI, hopelessness, and worthlessness. Status of Goals:: Objective 1- in progress. Pt?s DSM-5 scores for depression have decreased 17% since admission. Pt has gained awareness of coping mechanisms that reinforce depression like isolation and pt has been working on reducing this. Pt continues to endorse depressive symptoms such as feeling worthless, passive SI, and feeling down more than half the days. Objective 2- in progress. Pt is learning about her triggers, maladaptive coping skills, and strategies to reduce use of unhealthy coping skills. Pt is working on the skill ?riding the wave? and this has been beneficial. Team Recommendations:: Treatment team recommends pt continue to work on these tx goals. Therapist also encourages pt to increase communication with supports, increased verbal engagement in group, and use of healthy coping skills to manage chronic SI. Pt was encouraged to continue setting daily goals to reduce isolation and increase motivation. Problem #2: Problem Name:: Anxiety, ruminations, avoidance, and low distress tolerance Status of Goals:: Objective 1- not complete. Per pt?s DSM-5 pt?s anxiety has increased since admission. Pt admits that she has been engaging in risky sexual behaviors, which increases pt anxiety about getting . Pt has learned healthy coping skills and does report benefitting from the psychoeducation in group sessions. Objective 2- in progress. Pt reports she has been gaining more awareness of her negative thinking patterns, but pt struggles to challenge distortions without external support. Team Recommendations:: Treatment team recommends pt continue to work on these tx goals. Therapist also encourages pt to increase use of emotional regulation and distress tolerance skills. Therapist also encourages pt to com municate with supports and reduce self-sabotaging behaviors like isolation and not using safe sex practices.
--- NOTE | 2023-08-10 09:00 | BH.SGPN.GN ---
Behaviors/Verbalizations/Mental Status: [Patient was alert and oriented, appropriately dressed and groomed. Eye contact was poor, motor activity normal, speech within normal limits. Affect congruent, mood depressed. Thoughts linear, logical, no signs of hallucinations or delusions. Reviewed Patients symptom tracker and the patient reports depressed mood, anxiety/panic attacks, agitation/irritability/anger, self-harm urges, and thoughts/risk of suicide below normal limits. Therapist will check in with the patient to ensure safety.] Client Response/Progress/Benefit: [ Patient was engaged and open to the discussion. Patient reported her mood being ?depressed?.??The patient reported that her win was coming to group and her stressor was ?everything?. Patient did not want to answer anymore after this. Patient was respectful with other group members about their mental wins and stressors. Patient benefited from the discussion by listening to feedback on the groups stressors and mental health wins. Patient will continue with IOP treatment to help develop healthy skills, promote mood stability, and improve distress tolerance. ] Narrative Note: []
--- NOTE | 2023-08-10 10:17 | BH.SGPN.GN ---
Behaviors/Verbalizations/Mental Status: []Pt alert and oriented, neatly dressed and groomed. Eye contact good. Motor activity appropriate. Speech within normal limits. Affect flat, mood depressed. Thoughts linear, logical, no signs of hallucinations or delusions. Client Response/Progress/Benefit: [] Pt was actively taking notes, but pt was less engaged AEB poor eye contact. Connected with the topic of pitfalls and listened to group discussion on internal and external barriers that prevent from choosing a healthier path to mental wellness. Group worked together to identify examples of personal internal pitfalls and pt identified theirs as isolation, negative self-talk, and engaging in risky behaviors. Pt benefited from group as Pt learned to better identify and normalize potential barriers to improving mental health symptoms. Pt also gained awareness of the difference between external triggers and self-sabotaging behaviors. Pt will continue IOP tx to prevent decompensation, increase distress tolerance skill, and maintain safety. Narrative Note: []
--- NOTE | 2023-08-10 14:41 | BH.MDN ---
Multi-Disciplinary Note Note 60-min Individual: Time Started:: 11:30 Date: 08/10/23 Purpose of session/treatment goals addressed:: To work on distress tolerance skills, assess for risk and safety plan, and to process current stressors and triggers. Eye Contact:: Fair Motor Activity:: Appropriate Appearance:: Neat Speech:: Soft Mood:: Depressed Affect:: Constricted Thoughts:: Linear and No evidence of hallucinations/delusions noted Staff Interventions:: thought challenging, CBT techniques, strengths perspective, completed risk assessment / safety planning, goal setting and other (Reviewed distress tolerance skills such as riding the urge wave and learned IMPROVE ) Client Response:: Pt responded well to session, open to meeting with therapist. Pt appeared depressed and low today during group and during first group check-in pt stated everything is my stressor this morning. Pt unsure of the trigger for her worsened mood, but after processing, pt could identify having another negative test and being on her period as two potential triggers. Pt has PMDD and becomes more suicidal during her menstrual cycle. Pt stated she was both relieved and disappointed that she was not and pt was receptive to normalizing these emotions. Pt shared she went to the ER last night because her suicidal ideations got too bad. Pt also reached out to her AA sponsor and pt plans to see her AA sponsor at a [facility]. Pt shared she feels able to complete a safety plan today and pt set some goals for today. Pt denies any active SI today and shared my dog needs me in my life. Pt also is future oriented and stated she wants to get the most out of IOP as possible. Pt made plans for the afternoon up until her AA meeting [facility]. Pt plans to go to the [employer], take out her tomato plants, put some summer things away, and grill dinner. Pt reported belief these things would potentially improve her mood and help pt more effectively cope. Pt learned about the urge wave and connected this to her current feelings as well as her alcohol recovery. Pt able to see how her ability to ride the wave of urges to drink could help pt manage her mental health symptoms without acting on suicidal or unhelpful thoughts. Pt shared feeling better by the end of session and was laughing. Risks/Concerns:: Pt's self-report for SI today on the daily symptom tracker was higher than yesterday. Pt reports she went to the ER last night in [place] and was sent home with a safety plan. Pt reports having fleeting suicidal ideations today with thoughts of methods, but pt denies any intent to act on these thoughts as of 08/10/23. Pt stated I always reach out and pt agrees that her thoughts worsen and pt can not longer keep herself safe, pt will go to the ER and call her sponsor. Pt reports ability to maintain safety and is future oriented in session. Pt plans to attend an AA meeting [facility] and attend IOP tomorrow which pt shared she enjoys attending. No access to weapons. Supports at home with pt and protective factors. Pt reported her mood was better by the end of session. Progress Toward Goals/Plan:: Progress noted in pt's prevention of hospitalization and self-report of benefitting from IOP sessions. However, pt is still demonstrating mood instability with fleeting suicidal ideations that worsens during her mensural cycle which pt is currently on. Pt presents today with a depressed mood, fleeting SI, ruminations, difficulty concentrating, hopelessness, and urges to isolate. Pt praised for using opposite action this morning to get to IOP. Pt will continue IOP tx to prevent decompensation, improve distress tolerance skills, and improve overall functioning. Time Stopped:: 12:45
--- NOTE | 2023-08-11 09:00 | BH.SGPN.GN ---
Behaviors/Verbalizations/Mental Status: [] Eye contact is good. Motor activity is appropriate. Appearance is casual. Speech is Appropriate. Mood is euthymic. Affect is full. Thoughts are linear and logical. No evidence of psychosis. Reviewed daily check in sheet and pt reports 01/23 for suicidal ideations and 10/20 for intent. Client Response/Progress/Benefit: [] Pt participated at times during the group discussion. Attentive. Daily symptom tracker notes 5 for anxiety, depression, irritability, and self-harm urges. Pt was able to identify mental health wins which included completing tasks at home. I'm trying to keep busy to stay out of my head. She is making plans for the weekend to decrease isolation and ruminations. Utilizing skills, identifying and completing goals, and developing strategies to manage potential distress signifies progress. Benefited from group support, encouragement, and feedback. Will continue in IOP to maintain safety, stabilize mood, prevent decompensation, and increase healthy coping. Narrative Note: []
--- NOTE | 2023-08-11 10:05 | BH.SGPN.GN ---
Behaviors/Verbalizations/Mental Status: [] Eye contact is fair. Motor activity is appropriate. Appearance is casual. Speech is Appropriate. Mood is dysthymic. Affect is constricted. Thoughts are linear and logical. No evidence of psychosis. Client Response/Progress/Benefit: []Pt engaged participant AEB listening to others, engaging in activity, and providing feedback at times. Attentive during psychoeducation and provided insight into obstacles in the way of mental wellness. Pt shared with group current mental health reality and desired mental health reality. Stated coming to IOP as one step she is currently making to get closer to desired reality. Identified barriers to desired reality include: Anxious thoughts, fear, hopelessness, and defeated. Benefited from taking look at current mental health state and obstacles for progress. Pt to continue IOP to improve distress tolerance, challenge distorted thoughts, and prevent decompensation.
--- NOTE | 2023-08-11 10:10 | BH.SGPN.GN ---
Behaviors/Verbalizations/Mental Status: []Eye contact is good. Motor activity is appropriate. Appearance is casual. Speech is Appropriate. Mood is depressed and anxious. Affect is congruent. Thoughts are linear and logical. No evidence of psychosis. Client Response/Progress/Benefit: []Pt was an active participant in group discussion. Attentive during psychoeducation on SMART goals. Participated in experiential activity. Engaged during interactive discussion on the benefits of setting goals which group identified as; increase self-worth, increase confidence, can motivate us, can lead to personal growth, and can give one a sense of purpose. Participated during interactive discussion on possible obstacles to obtaining goals and pt self-identified barriers as distracted by other things and lack of energy?. Benefited from increased understanding of benefits of goals, obstacles to obtaining goals, and methods for setting appropriate goals (SMART goals). Will continue in IOP to prevent decompensation, promote mood stability, and further improve application of healthy coping skills. Narrative Note: []
--- NOTE | 2023-08-11 11:10 | BH.SGPN.GN ---
Behaviors/Verbalizations/Mental Status: []Eye contact is good. Motor activity is appropriate. Appearance is casual. Speech is Appropriate. Mood is agitated and depressed. Affect is congruent. Thoughts are linear and logical. No evidence of psychosis. Client Response/Progress/Benefit: []Pt responded well to session, actively engaged throughout. Provided input during discussion on what potential internal barriers may be keeping them from reaching their desired reality. Pt was an active participant throughout the interactive activity in which group members problem solved the various internal barriers each pt reports struggling with. Pt identified wanting to work on personal barrier of avoidance and shared plans to slowly expose herself to the anxious thing as a means of overcoming this barrier. Pt appeared to benefit from brainstorming skills to overcome internal barriers, as well as support of the group. Will continue in IOP tx to prevent decompensation, promote skill application, and further encourage use of adaptive coping skills. ? Narrative Note: []
--- NOTE | 2023-08-11 13:32 | BH.MDN ---
Multi-Disciplinary Note Note 30-min Individual: Time Started:: 12:05 Date: 08/11/23 Purpose of session/treatment goals addressed:: To identify a coping skills plan for the weekend, review application of coping skills, and process any current stressors. Eye Contact:: Fair Motor Activity:: Appropriate Appearance:: Neat Speech:: Soft Mood:: Anxious and Depressed Affect:: Congruent Thoughts:: Linear, Logical and No evidence of hallucinations/delusions noted Staff Interventions:: thought challenging, CBT techniques, treatment planning, goal setting (identified things could do over the weekend to fill her schedule.) and other (homework given to review her binder 15 min a day.) Client Response:: Pt responded well to session, open to meeting with therapist. Pt reports feeling in a better mindset today. Pt shared that after she left IOP she went home, took her dog to the dog park, did chores outside, grilled, and then went to an AA meeting. Pt stated these things helped pt's mood as pt wanted to go home and isolate. Pt given credit for her application of coping skills and pt was encouraged to reflect on her ability to manage her emotions. Pt admits that she struggles in the moment to use healthy coping skills and had a difficult time in session identifying any she could use. Receptive to coming up with a coping skills plan for the weekend which included reaching out to several supports, attending an AA meeting, going to a rastafari event, and spending 15 minutes a day reviewing her IOP binder. Pt shared she is also struggling today with her miscarriage and pt reported I'm not okay, but I'll be okay. Pt stated she plans to stuff her emotions, and responded well to gentle thought challenging from therapist. Pt responded well to normalizing her emotions of grief as well as education on necessary vs unnecessary suffering. Discussed how certain coping mechanisms can prolong emotional suffering while others can help pt process and then bounce back from emotional suffering. Some of the things pt could identify that prolong suffering include isolating, reading sad quotes, and getting onto Facebook. Risks/Concerns:: Pt reports reduced intensity of SI today and improved mood. Pt reports only fleeting, passive thoughts today that are much more easily controlled. Pt denies any active SI, plan, or intent as of 08/11/23 and reports ability to maintain safety. Pt shared using healthier coping skills last night helped pt. Progress Toward Goals/Plan:: Progress noted in pt's follow through with safety plan from yesterday. Pt able to ride the wave of her urges and strong emotions without acting on impulse. Pt reports reduced intensity of SI today, but pt still has fleeting, passive SI. Pt continues to struggle with mood instability, negative thinking patterns, isolative behaviors, a depressed mood, and difficulty with utilizing internal coping skills in the moment. Pt will continue IOP tx to prevent decompensation, improve distress tolerance skills, and reduce isolation. Time Stopped:: 12:35
== END 2023-08-15 23:59 ==
LOC: BHIOP 09:20
PROVIDERS: Referring Provider Psychiatry & Neurology Psychiatry; Visit Provider Psychiatry & Neurology Psychiatry
DX: F31.63 Bipolar disorder, current episode mixed, severe, without psychotic features (principal); F41.1 Generalized anxiety disorder; F90.9 Attention-deficit hyperactivity disorder, unspecified type; F43.10 Post-traumatic stress disorder, unspecified; F10.91 Alcohol use, unspecified, in remission
CPT/HCPCS: S9480; 90832; 90834; 90837; 90853

== ENCOUNTER 2023-08-16 06:48 | Outpatient (RCR) | payer OTHER, SELFPAY ==
[2023-08-16 00:52] VITALS: BP 148/100; PULSE 95
--- NOTE | 2023-08-16 09:00 | BH.SGPN.GN ---
Behaviors/Verbalizations/Mental Status: [Patient was alert and oriented, appropriately dressed and groomed. Eye contact was good, motor activity normal, speech within normal limits. Affect congruent, mood content. Thoughts linear, logical, no signs of hallucinations or delusions. Reviewed Patients symptom tracker and the patient reported depressed mood, anxiety/panic attacks, aggravation/irritation/anger, self-harm urges, and risk/thoughts of suicide within patients normal base level.] Client Response/Progress/Benefit: [Patient was engaged and open to the discussion. Patient reported her mood was ?laid back and tired?. The first win was that the last 2 days at work has been stressful however, the patient was able to use coping skills and mindfulness to not let it affect her day. The second win was that she has been helping her mom out more with her dad and has been cooking and cleaning for them. Her stressor is money, because she is only working 2 days a week, her money situation is getting tight. Patient was interactive and respectful with other group members about their mental wins and stressors. Patient benefited from the discussion by listening to feedback and giving input on her peer?s stressors and mental health wins. Patient will continue with IOP treatment to help develop healthy skills, promote mood stability, and improve distress tolerance.] Narrative Note: []
--- NOTE | 2023-08-16 10:10 | BH.SGPN.GN ---
Behaviors/Verbalizations/Mental Status: [] Eye contact is good. Motor activity is appropriate. Appearance is casual. Speech is Appropriate. Mood is depressed. Affect is flat. Thoughts are linear and logical. No evidence of psychosis. Client Response/Progress/Benefit: [] Pt participated at times during the group discussions however was mostly quiet and attentive AEB note-taking. Active participant in experiential activity. Attentive during interactive discussion in which group worked together to define resilience (i.e. continuing to bounce back from hardship; willingness to keep trying) and identify benefits of resilience. Attentive during interactive discussion on if resilience is something we are born with or can learn. Provided appropriate thoughts and feedback. Able to relate the experiential activity back to topic of resilience. Worked well in small groups to identify strategies to build resilience. Benefited from increased awareness of the role of resilience in mental health and ways to build resilience. Will continue in IOP to maintain safety, stablize mood, and increase healthy coping skills. Narrative Note: []
--- NOTE | 2023-08-16 11:10 | BH.SGPN.GN ---
Behaviors/Verbalizations/Mental Status: []Pt alert and oriented, neatly dressed and groomed. Eye contact good. Motor activity appropriate. Speech within normal limits. Affect flat, mood calm. Thoughts linear, logical, no signs of hallucinations or delusions. Client Response/Progress/Benefit: [] Pt responded well to session AEB completing the resilience worksheet provided. Pt actively participated in the discussion and worked cooperatively with group to identify strategies to enhance each of the components discussed. Pt reports belief they already use resilience traits of making connections and self-awareness. Pt discussed that they could work more on nurturing a positive view of self. Pt seemed to benefit from discussing strategies for improving personal resilience and identifying resilience traits Pt already possesses. Will continue IOP tx to promote use of healthy coping skills, increase distress tolerance skills, and improve self-compassion. ??? Narrative Note: []
--- NOTE | 2023-08-17 10:15 | BH.SGPN.GN ---
Behaviors/Verbalizations/Mental Status: [] Eye contact is good. Motor activity is appropriate. Appearance is casual. Speech is Appropriate. Mood is depressed. Affect is flat. Thoughts are linear and logical. No evidence of psychosis. Client Response/Progress/Benefit: [] Pt participated at times during the group discussions. Active participant in group activity on perspective. Attentive during interactive group discussions in which peers worked together to define 'perspective' (i.e. how we look at things; what we focus on) and discuss how it can impact one's mental health. Group was able to to identify what can impact our perspective and gave examples such as; past experiences, emotions, feelings, thoughts, support system, upbringing, and current environment. Benefited from increased awareness and insight on the role of perspective on mental health. Will continue in IOP to prevent decompensation, stabilize mood, increase healthy coping, and maintain safety. Narrative Note: []
--- NOTE | 2023-08-17 11:15 | BH.SGPN.GN ---
Behaviors/Verbalizations/Mental Status: []Pt alert and oriented, neatly dressed and groomed. Eye contact good. Motor activity appropriate. Speech within normal limits. Affect congruent, mood depressed, agitated. Thoughts linear, logical, no signs of hallucinations or delusions. Client Response/Progress/Benefit: []Pt was attentive and contributed to small group discussion. Pt completed strengths exploration worksheet, identifying being a leader, bravery, and sense of humor as personal strengths. Pt able to acknowledge how these strengths are helping pt and can continue to help pt in mental health journey. Pt worked with group to identify strategies that can help increase utilization of personal strengths and how to challenge one?s perspective in general. Pt identified wanting to work on increasing positive self-talk to help challenge perspective. Benefited from identifying personal strengths and strategies for enhancing use of identified strengths to challenge perspective. Pt to continue IOP tx to promote mood stability, improve daily functioning, and increase self-compassion. ? Narrative Note: []
--- NOTE | 2023-08-17 15:21 | BH.MDN_ITS ---
Multi-Disciplinary Note Note 60-min Individual: Time Started:: 08:35 Date: 08/17/23 Purpose of session/treatment goals addressed:: To assess pt's increased SI on the daily symptom tracker and to review healthy coping skills and supports pt can utilize. Another goal was to discuss distress tolerance skills to help pt ride the wave. Eye Contact:: Fair Motor Activity:: Appropriate Appearance:: Casual Speech:: Soft Mood:: Anxious and Depressed Affect:: Constricted Thoughts:: Other (distorted thoughts of self) and No evidence of hallucinations/delusions noted Staff Interventions:: thought challenging, motivational interviewing, CBT techniques, mindfulness skills, strengths perspective, completed risk assessment / safety planning, goal setting and other (reviewed riding the wave ) Client Response:: Pt responded well to session, open to meeting with therapist. Pt shared she is feeling depressed and she is anxious that she will spiral. Pt had shared last week that this week was going to be bad. Pt receptive to thought challenging and reminder that pt has some control over how her days/weeks go if pt can cope differently and maintain self-awareness. Pt receptive to the two train metaphor which helped pt see that she has two options in front of her. Option one (train one) is the same response she has always had to symptoms and stressors. Pt reports this response tends to be isolating her in room and withdrawing from support and interests. Pt can identify where train one takes pt which is to more depression, suicidal thoughts, and feeling like a burden. Option two (train two) is scary because it is a new option, one that req uires pt to sit with the uncomfortable, reach out to support, get out of her room, and go outside. This technique helped pt last week and pt could connect this metaphor to the changes needed in sobriety. Pt willing to create a safety plan for tonight which included going to the dog park, getting outside or wrapping presents, and attending AA tonight even though she wants to isolate. Pt also receptive to thought challenging which helped pt combat distortions that are telling pt no one would care if I was gone. Through thought challenging, pt identified numerous people in her life that love her and consistently show they care about her. Pt reports being in a better mood by the end of session. Risks/Concerns:: Pt reports increase suicidal ideations today, but denies any plan or intent. Per pt's daily symptom tracker, pt's scores were above her baseline. Pt receptive to safety plan as this worked for pt last week when her SI was higher as well. Pt future oriented with plans to attend AA meeting rajni and see her sponsor. Reports ability to maintain safety and plans to attend IOP tomorrow. Progress Toward Goals/Plan:: Pt is making progress towards her tx goals AEB pt's ability to prevent hospitalization and manage distressing emotions more effectively. Pt was able to ride the wave last week which helped pt utilize healthy coping skills instead of isolating and acting on impulse when she was depressed. Because this helped pt last week, pt was more receptive to utilizing this technique this week to manage her distressing emotions. Pt continues to endorse chronic, passive SI, negative thinking patterns, urges to isolate and withdraw, negative thoughts of self, and feeling like a burden at times. Pt will continue IOP tx to increase mood stability, further improve distress tolerance skills, and improve self-awareness. Time Stopped:: 09:35
--- NOTE | 2023-08-18 09:00 | BH.SGPN.GN ---
Behaviors/Verbalizations/Mental Status: [] Eye contact is good. Motor activity is appropriate. Appearance is casual. Speech is Appropriate. Mood is depressed. Affect is congruent. Thoughts are linear and logical. No evidence of psychosis. Reviewed daily check in sheet and pt reports 5/10 for suicidal ideation and 0/5 for intent. Client Response/Progress/Benefit: [] Pt participated when prompted. Attentive. Daily symptom tracker notes 4/5 for depression and anxiety. Emotion for today is grateful. Share shared with the group that she is feeling down and depression today. Alone ... like nobody cares. Despite having these emotions and thoughts for the past couple days I didn't isolate. Has an upcoming birthday celebrations which she is looking forward too however some struggles with turning 38. Progress noted as she is utilizing skills to minimize distress, isolation, and negative automatic thoughts. Benefited from group support, encouragement, and feedback. Will continue in IOP to maintain safety, stabilize mood, increase healthy coping, and improve functioniong to transition back to work. Narrative Note: []
--- NOTE | 2023-08-18 10:15 | BH.SGPN.GN ---
Behaviors/Verbalizations/Mental Status: [] Eye contact is good. Motor activity is appropriate. Appearance is casual. Speech is Appropriate. Mood is depressed. Affect is flat. Thoughts are linear and logical. No evidence of psychosis. Client Response/Progress/Benefit: [] Pt participated at times during the group discussion. Participated in the group activity and was able to relate the activity to the topic of coping skills. Provided feedback during interactive discussion on coping skills. Group identified aspects that can influence copings skills which included; environment, learned behaviors, past experiences, accessibility, and the amount of effort placed in practicing skills. Discussion on the difference between internal vs external coping skills as well as healthy vs unhealthy coping skills such as; denial, minimization, crying, lashing out, substance abuse, retail therapy, and sleeping to escape. Benefited from increased education on coping skills. Will continue in IOP to maintain safety, prevent decompensation, and improve functioning to transition back to FT work. Narrative Note: []
--- NOTE | 2023-08-18 11:15 | BH.SGPN.GN ---
Behaviors/Verbalizations/Mental Status: [] Client alert and oriented, casually dressed and groomed. Eye contact good. Motor activity appropriate. Speech within normal limits. Affect congruent, mood agitated and dysthymic. Thoughts linear, logical, no signs of hallucinations or delusions. Client Response/Progress/Benefit: [] Client responded well to session AEB taking notes and providing input and examples throughout. Group discussed the different categories of coping skills which included distraction, emotional release, grounding, self-love, and thought challenging. Client created a coping skill menu identifying various skills to try in each category. Client?s coping skill menu included:reaching out to supports, cleaning, deep breathing, positive self-talk, and reminding herself that thoughts are thoughts not facts. Appeared to benefit from increasing repertoire of healthy coping skills. Client will continue IOP tx to improve daily functioning, reduce negative thinking, and increase mood management skills. Narrative Note: []
--- NOTE | 2023-08-18 14:06 | BH.MDN ---
Multi-Disciplinary Note Note 30-min Individual: Time Started:: 12:15 Date: 08/18/23 Purpose of session/treatment goals addressed:: To address current symptoms, stressors, and application of coping skills. Eye Contact:: Good Motor Activity:: Appropriate Appearance:: Neat Speech:: Soft Mood:: Anxious Affect:: Constricted Thoughts:: Linear, Logical and No evidence of hallucinations/delusions noted Staff Interventions:: thought challenging, motivational interviewing, CBT techniques, mindfulness skills, strengths perspective and goal setting Client Response:: Pt responded well to session, open to meeting with therapist. Pt shared she is feeling better today and her SI has decreased in intensity. Pt stated she followed her safety plan yesterday and she went to the [employer], helped her mom cook, and went to . Pt also brought cupcakes to and brought the leftovers to [facility] today which brought pt zofia. Pt shared the AA meeting helped lift pt's mood and pt was able to challenge her perspective. Pt is looking forward to this weekend and her birthday green party. Pt's sister is coming to see pt and pt shared they will probably play games together [employer]. Pt shared she is worried that she will become manic because this is when I normally get manic but pt was receptive to identifying what pt could do to prevent escalation of darius. These included getting plenty of rest, which pt recognizes she will need to sleep in my own bed twice and to reduce caffeine use. Pt also reminded to use the healthy coping skills that helped pt cope earlier this week and last week. Pt plans to cook at least one more time before coming to [facility] next week. Risks/Concerns:: Pt denies any active SI, plan, or intent. Pt reports feeling better than yesterday and her chronic SI is back to baseline. Pt is looking forward to the weekend and her birthday green party. Pt reports ability to maintain safety. Progress Toward Goals/Plan:: Pt reports her mood is improved from yesterday and pt feels less suicidal. Pt reports she had a good time at AA last night and pt is looking forward to the weekend. Pt did not isolate yesterday which helped pt's mood and prevent further decompensation. Pt continues to struggle with challenging negative thoughts without external support, but she is showing progress in session with reframing distortions. Pt's mood stability continues to be dependent on external situations, but pt is getting better with utilizing healthier coping skills. Pt will be returning to work full-time and her last week will be in two weeks. Pt will continue IOP tx to promote use of healthy coping skills, improve self-confidence, and further reduce isolation. Time Stopped:: 12:40
--- NOTE | 2023-08-23 09:00 | BH.SGPN.GN ---
Behaviors/Verbalizations/Mental Status: [Patient was alert and oriented, appropriately dressed and groomed. Eye contact was good, motor activity normal, speech within normal limits. Affect congruent, mood content. Thoughts linear, logical, no signs of hallucinations or delusions. Reviewed Patients symptom tracker and the patient reports depressed mood, anxiety/panic attacks, aggravation/irritation/anger, self-harm urges, and risk/thoughts of suicide within patients normal base level.] Client Response/Progress/Benefit: [Patient was engaged and open to the discussion. Patient reported her mood as ?content?. Patient shared that her first win was that her family threw her a big birthday constitution party where around 60 people showed up. This made her feel appreciated and wanted. The second win was that she only got 2 hours of sleep last night but still managed to get herself to group. Her stressor is that today is her birthday and she turned 38 years old. Patient was interactive and respectful with other group members about their mental wins and stressors. Patient benefited from the discussion by listening to feedback and giving input on his peer?s stressors and mental health wins. Patient will continue with IOP treatment to help develop healthy skills, promote mood stability, and improve distress tolerance. ] Narrative Note: []
--- NOTE | 2023-08-23 10:20 | BH.SGPN.GN ---
Behaviors/Verbalizations/Mental Status: []Pt alert and oriented, neatly dressed and groomed. Eye contact good. Motor activity appropriate. Speech within normal limits. Affect constricted, mood euthymic. Thoughts linear, logical, no signs of hallucinations or delusions. Client Response/Progress/Benefit: []Pt was mostly a passive participant in small group discussion. Pt?s group worked together to identify benefits of healthy relationships which included insight, accountability, and guidance. Group identified factors that lead to unhealthy relationships. Pt?s personal factors included mental health and not knowing what pt deserves. Actively participated in group experiential activity and expressed ideas to group. Benefited from increased insight and awareness of benefits of healthy relationships and factors that contribute to unhealthy relationships. Will continue IOP tx to increase application of healthy coping skills, improve daily functioning, and promote mood stability. Narrative Note: []
--- NOTE | 2023-08-23 11:18 | BH.SGPN.GN ---
Behaviors/Verbalizations/Mental Status: [] Client alert and oriented, casually dressed and groomed. Eye contact good. Motor activity appropriate. Speech within normal limits. Affect congruent, mood euthymic. Thoughts linear, logical, no signs of hallucinations or delusions. Client Response/Progress/Benefit: [] Client responded well to session, engaged and taking notes throughout. Worked with group to identify how variables contributing to the stability of the ball in the activity with characteristics of healthy and unhealthy relationships. Attentive during psychoeducation about characteristics of healthy, unhealthy, and abusive relationships. Client stated within the relationship with her sponsor she does well with trust, honesty, and communication. Client reported an area she would like to improve in is independent coping to prevent codependence. Client shared she could so by reminding herself to spend time each day practicing healthy coping skills. Appeared to benefit from identifying the current healthy relationship attributes and an area client wants to work on to build healthier relationships. Client to continue IOP to increase healthy coping skill consistency, maintain mood stability, and prevent decompensation. Narrative Note: []
--- NOTE | 2023-08-24 09:05 | BH.SGPN.GN ---
Behaviors/Verbalizations/Mental Status: [Patient was alert and oriented, appropriately dressed and groomed. Eye contact was good, motor activity normal, speech within normal limits. Affect congruent, mood content. Thoughts linear, logical, no signs of hallucinations or delusions. Reviewed Patients symptom tracker and the patient reports depressed mood, anxiety/panic attacks, aggravation/irritation/anger, self-harm urges, and risk/thoughts of suicide within patients normal base level.] Client Response/Progress/Benefit: [Patient was engaged and open to the discussion. Patient stated her mood was joyful and content. The first win was that she had an excellent birthday and spent time with her nephew. Patient stated her second win was that she got a new shelf for her garage so she can organize her things. Patient stated she was not able to think of a stressor. She shared that the past 2 days she has been feeling better and hasn?t felt this good in a long time. Patient was interactive and respectful with other group members about their mental wins and stressors. Patient benefited from the discussion by listening to feedback and giving input on her peer?s stressors and mental health wins. Patient will continue with IOP treatment to help develop healthy skills, promote mood stability, and improve distress tolerance. ] Narrative Note: []
--- NOTE | 2023-08-24 10:10 | BH.SGPN.GN ---
Behaviors/Verbalizations/Mental Status: []Pt alert and oriented, casually dressed and groomed. Eye contact good. Motor activity appropriate. Speech within normal limits. Affect congruent, mood euthymic. Thoughts linear, logical, no signs of hallucinations or delusions. Client Response/Progress/Benefit: [] Pt engaged in session AEB listening attentively to others and providing insight to group discussion. Pt engaged in activity, able to connect how it can be uncomfortable and difficult to accept when things are out of one?s own control. Pt worked with group to identify what things in life can be hard to accept. Group identified things hard to accept as: of a loved one, body image, loss of relationship, mental health diagnosis, other?s behaviors, and past decisions. Pt shared she personally is struggling with accepting turning 38, that relationship could possibly not work out, and having to reach out for help when mental health decompensates. Pt seemed to benefit from increased awareness of importance of acceptance. Pt to continue IOP tx to prevent decompensation, decrease impulsiveness, and continue use of healthy coping skills.
--- NOTE | 2023-08-24 11:10 | BH.SGPN.GN ---
Behaviors/Verbalizations/Mental Status: []Pt alert and oriented, neatly dressed and groomed. Eye contact good. Motor activity appropriate. Speech within normal limits. Affect congruent, mood euthymic. Thoughts linear, logical, no signs of hallucinations or delusions. Client Response/Progress/Benefit: [] Pt responded well to session AEB taking notes and contributing to discussion throughout. Pt engaged as group continued discussion on acceptance and the mental health benefits of practicing acceptance. Pt and peers identified what makes acceptance challenging and pt completed a self-reflection exercise on what is hard to accept in pt's life. Pt identified struggling to accept that my relationship might not work, but it might.? Group identified strategies to increase acceptance and pt shared wanting to focus on being more willing instead of willful. Pt appeared to benefit from gaining insight and learning strategies to increase acceptance. Pt will continue IOP tx to promote gains, increase emotional regulation skills, and reduce use of unhealthy coping skills. Narrative Note: []
--- NOTE | 2023-08-24 14:36 | BH.MDN ---
Multi-Disciplinary Note Note 30-min Individual: Time Started:: 12:10 Date: 08/24/23 Purpose of session/treatment goals addressed:: To review progress from last week, application of healthy coping skills, and discuss discharge plan. Eye Contact:: Good Motor Activity:: Appropriate Appearance:: Neat Speech:: Appropriate Mood:: Euthymic Affect:: Full Thoughts:: Linear, Logical and No evidence of hallucinations/delusions noted Staff Interventions:: thought challenging, psychoeducation on: (healthy relationship traits.), mindfulness skills, discharge planning, strengths perspective and other (discussed the importance of maintenance.) Client Response:: Pt responded well to session, open to meeting with therapist. Pt shared she has been feeling happy and it's weird for the past few days. Pt recently celebrated her birthday and pt felt loved because a lot of people showed. Pt also recently started dating a sandor and pt feels that he is a good person for her. Pt stated she was able to prevent an episode of darius which pt was highly worried about last week. Pt feels the change in lithium could be contributing to pt's improved mood stability. Pt shared normally I'd be manic right now and this would lead to impulsive decisions and a depressive crash. Therapist helped pt identify things within pt's control that pt did to additionally prevent worsening symptoms. These things included continuing to reach out to supports, practicing self-care, and avoiding isolation. Pt encouraged to keep up with these strategies even though pt feels happy. Pt had awareness that the activities pt used last week are what helped pt get better. Pt receptive to talking about her new relationship and pt shared belief that he is a good person for pt. Pt does not feel like there are any red flags within the relationship other than he cannot drive and they live two hours apart. Pt reviewed other healthy traits of a relationship including open communication, clear expectations, and trust. Pt is still having unprotected sex with him which could be concerning considering pt's medications and trauma with recent miscarriage. Pt understands this and receptive to learning about different methods of control. Pt will continue IOP tx and her last week will be next week. Risks/Concerns:: Pt denies any SI, plan, or intent. Progress Toward Goals/Plan:: Pt's mood is significantly improved today compared to last week. Pt reports belief it is because of a lithium increase by her outpatient psychiatrist, but pt also now has a boyfriend which is also significantly improving her mood. Pt continues to struggle with negative thinking patterns, chronic SI that is passive, low distress tolerance, and low self-esteem. Pt reports she was able to prevent herself from getting manic which gave pt hope and also kept pt from crashing. Pt will continue IOP tx for one more week to reinforce healthy coping skills, improve daily functioning, and further increase distress tolerance skills. Time Stopped:: 12:40
--- NOTE | 2023-08-25 09:00 | BH.SGPN.GN ---
Behaviors/Verbalizations/Mental Status: [] Eye contact is good. Motor activity is appropriate. Appearance is casual. Speech is Appropriate. Mood is euthymic. Affect is full. Thoughts are linear and logical. No evidence of psychosis. Reviewed daily check in sheet and pt reports 5/10 for suicidal ideations and 0/5 for intent (baseline). Client Response/Progress/Benefit: [] Pt participated when prompted. Attentive. Daily symptom tracker notes 4/5 for depression and 3/5 for anxiety. Shared mental health wins which included following up with medical appointment and completing anxiety producing tasks. Reports improved motivation, energy, and hopefulness. Emotion for today is confused. She would not elaborate however stated I'm sure if I use my skills everything will be fine. Progress noted per pt report. Her mood appears to be incongruent with her symptom tracker scores which indicate significant depression/anxiety. Benefited from group support, encouragement, and feedback. Will continue in IOP to maintain safety, prevent decompensation, and increase healthy coping skills. Narrative Note: []
--- NOTE | 2023-08-25 10:15 | BH.SGPN.GN ---
Behaviors/Verbalizations/Mental Status: [Patient was alert and oriented, casually dressed and groomed. Eye contact good, motor activity normal, speech within normal limits. Affect congruent, mood content. Thoughts linear, logical, no signs of hallucinations or delusions. ] Client Response/Progress/Benefit: [ Patient was open and participated in group discussions. Attentive during psychoeducation on behavior activation. Participated during the activity. Interactive group discussion on behavior activation in which group verbalized different up and down activities and how they can positively or negatively impact their actions. Patient stated some of her ?up? activities are exercise, listening to upbeat rap music, and cleaning. Patient stated some of her ?down ?activities are listening to sad music, staying in bed, and isolating. Patient benefited from increased awareness of stages of changes and how emotions impact change. Will continue in IOP to promote gains, further combat distorted thinking, and improve daily functioning.] Narrative Note: []
--- NOTE | 2023-08-25 11:10 | BH.SGPN.GN ---
Behaviors/Verbalizations/Mental Status: [] Eye contact is fair. Motor activity is appropriate. Appearance is casual. Speech is Appropriate. Mood is euthymic. Affect is constricted. Thoughts are linear and logical. No evidence of psychosis. Client Response/Progress/Benefit: [] Pt responded well to session, attentive and engaged in group discussions and activity. Group discussed values and the benefits that knowing one's values can have on one's mental health. Pt explored own values and identified personal top values. Pt stated important value is her friendships. Client set goal to be more intentional on reaching out to her friends to schedule things to do together. Pt reported having more friends to connect with will benefit her mental health. Pt appeared to benefit from exploring values and creating a weekly goal. Will continue in IOP to decrease impulsive decisions, increase healthy coping, and prevent decompensation.
--- NOTE | 2023-08-29 09:38 | BH.TPR ---
Treatment Plan Review Demographics Date of Admission:: 07/13/23
--- NOTE | 2023-08-30 09:00 | BH.SGPN.GN ---
Behaviors/Verbalizations/Mental Status: [] Eye contact is good. Motor activity is appropriate. Appearance is casual. Speech is Appropriate. Mood is depressed. Affect is flat. Thoughts are linear and logical. No evidence of psychosis. Reviewed daily check in sheet and no reports of suicidal ideations or intent. Client Response/Progress/Benefit: [] Pt participated when prompted. Attentive. Daily symptom tracker notes 5/5 for self-harm urges, 4/5 for anxiety and 3/5 for depression. Slightly above baseline. Emotion for today is ?down?. Pt?s check in was very short however mostly positive. States that she ?adopted a 6 year old? referring to a gift giving program in which she agreed to buy gifts for a 6 year old from a struggling family. Explained how this is beneficial to her mental health . Shared that this is her last week in IOP and she is prepared to return to work full-time next week. Regression noted AEB pt daily tracker scores however she choose not to elaborate in group. Benefited from group support, encouragement, and feedback. Will continue in IOP to maintain safety, prevent decompensation, and improve functioning to return to work full-time Narrative Note: []
--- NOTE | 2023-08-30 10:15 | BH.SGPN.GN ---
Behaviors/Verbalizations/Mental Status: [Patient was alert and oriented, casually dressed and groomed. Eye contact good, motor activity normal, speech within normal limits. Affect congruent, mood content. Thoughts linear, logical, no signs of hallucinations or delusions. ] Client Response/Progress/Benefit: [Patient was open and participated in group discussions. Attentive during psychoeducation on growth mindset. Participated during the activity. Interactive group discussion on growth mindset in which group verbalized their current fixed mindsets and how they affect their mental health. Patient shared that one of her fixed thoughts was ?I?ll never feel better?. Patient benefited from increased awareness of growth mindset and fixed thoughts and how fixed thoughts impact their mental health. Will continue in IOP to promote gains, further combat distorted thinking, and improve daily functioning.] Narrative Note: []
--- NOTE | 2023-08-30 11:10 | BH.SGPN.GN ---
Behaviors/Verbalizations/Mental Status: []Pt alert and oriented, neatly dressed and groomed. Eye contact good. Motor activity appropriate. Speech within normal limits. Affect flat, mood irritable. Thoughts linear, logical, no signs of hallucinations or delusions. Client Response/Progress/Benefit: [] Pt was an active participant during activity and discussion AEB providing some input, connecting with peers, as well as taking notes throughout. Pt did well to engage as group worked on identifying characteristics and benefits of adopting a growth mindset. Worked with fellow participants in reframing the example fixed thoughts into growth mindset thoughts. Pt worked on changing own fixed thought of ?people don?t care? to growth thought of ?people do care, I just have to believe them when they say they do.? Benefitted from discussing benefits of growth mindset and brainstorming strategies for prompting growth-mindset. Pt appeared to benefit from working in small groups to challenge own thoughts and help peers. Pt will continue IOP tx to promote mood stability, reinforce healthy coping skills, and improve self-confidence. Narrative Note: []
--- NOTE | 2023-08-31 09:05 | BH.SGPN.GN ---
Behaviors/Verbalizations/Mental Status: []Eye contact is good. Motor activity is appropriate. Appearance is neat. Speech is Appropriate. Mood is euthymic. Affect is full. Thoughts are linear and logical. No evidence of psychosis. Reviewed daily check in sheet and no reports of suicidal ideations or intent. Client Response/Progress/Benefit: []Pt responded well to session, attentive and engaged. Pt reports feeling tired today but shared she is smiling more often. Pt was vague about her wins and stressors today, but her daily symptom tracker scores were improved today which indicated feeling less depressed. Pt stated she is anxious about leaving IOP tx, but pt knows she has a lot of skills that can help pt succeed. Pt's mental health wins include getting to IOP today despite being tired and having things in life to look forward to again. Pt appeared to benefit from reflecting on her progress. Pt will continue IOP tx for one more session to reinforce healthy coping skills and establish aftercare. Narrative Note: []
--- NOTE | 2023-08-31 10:10 | BH.SGPN.GN ---
Behaviors/Verbalizations/Mental Status: [] Eye contact is fair. Motor activity is appropriate. Appearance is casual. Speech is Appropriate. Mood is euthymic. Affect is constricted. Thoughts are linear and logical. No evidence of psychosis. Client Response/Progress/Benefit: [] Pt was an engaged participant in group discussions AEB her providing a few contributions in group discussion. Attentive during psychoeducation on the 4 communication styles (Passive, Passive-Aggressive, Aggressive, and Assertive) and the obstacles to effective communication. Contributed during interactive discussion on the benefits of communicating effectively which included: getting needs met, building connection, decreases stress, improved relationships, increased motivation, and increased understanding of others. Worked well in small group in which pt and peers identified the benefits and disadvantages to the different communication styles. Benefited from increased understanding of communication styles and how these can impact effective communication. Will continue in IOP to decrease impulsive decisions, improve mood stability, and prevent decompensation.
--- NOTE | 2023-08-31 11:15 | BH.SGPN.GN ---
Behaviors/Verbalizations/Mental Status: []Pt alert and oriented, neatly dressed and groomed. Eye contact good. Motor activity appropriate. Speech within normal limits. Affect congruent, mood euthymic. Thoughts linear, logical, no signs of hallucinations or delusions. Client Response/Progress/Benefit: [] Pt responded well to session AEB Pt listening attentively to others and providing input during group discussion on the pay offs and costs of the different communication styles. Pt able to connect how current communication style impacts mental health. Pt engaged in activity. Connected with peers comments about importance of using assertive communication. Pt reported she wants to work on expressing her emotions more when communicating with other. Pt seemed to benefit from increasing awareness of healthy strategies to improve communication. Will continue IOP tx to prevent decompensation, maintain mood stability, and promote coping skill application. Narrative Note: []
--- NOTE | 2023-08-31 14:34 | BH.MDN_ITS ---
Multi-Disciplinary Note Note 45-min Individual: Time Started:: 12:13 Date: 08/31/23 Purpose of session/treatment goals addressed:: To address current stressors and discuss strategies to help cope with these stressors. Another goal was to discuss discharge and aftercare. Eye Contact:: Good Motor Activity:: Appropriate Appearance:: Neat Speech:: Appropriate Mood:: Euthymic Affect:: Full Thoughts:: Linear, Logical and No evidence of hallucinations/delusions noted Staff Interventions:: CBT techniques, discharge planning, strengths perspective and other (completed maintenance plan.) Client Response:: Pt responded well to session, open to meeting with therapist. Pt reports she is feeling happy and that it kind of feels weird. Pt shared she feels her mood is improved because of her [place] and because of her new relationship. Pt has been seeing a man and pt feels that he is a good partner for pt. Pt wants to eventually introduce him to her parents if they are still together during Pat. Pt also gave herself credit for using healthier coping skills and reducing isolation which has been significantly effective in reducing depression and managing SI. Pt receptive to completing a maintenance plan which including triggers, warning signs, coping skills, and self-care strategies to promote gains and help pt continue to grow in her mental wellness journey. Pt completed a plan for depression and darius. Pt's shared she has a lot of mixed episodes, so many of her warning signs are the same for depression and darius. Pt identified coping skills to help pt such as walking her dog, reaching out, cooking, listening to music, getting outside, and riding the wave. Pt plans to continue working with her outpatient therapist and psychiatrist. Risks/Concerns:: Pt denies any active SI, plan, or intent. Pt reports feeling happy today and her thoughts of are decreased today as well. Progress Toward Goals/Plan:: Pt has accomplished her tx goals AEB her overall symptom reduction of 53% since admission. Pt's depression has decreased by 60%, anger has decreased by 67%, and anxiety has decreased by 100% since admission. Pt reports improved mood stability and continues to respond well to her [place]. Pt reports improved ability to manage self-harm urges and has significantly increase her ability to manage negative thinking. Pt will continue IOP tx to reinforce healthy coping skills and provide closure to treatment. Time Stopped:: 12:55
--- NOTE | 2023-08-31 14:51 | BH.AFTERPLAN ---
Aftercare Plan Demographics Treatment End Date:: 09/01/23 Psychiatrist:: Sophia Dodd Psychiatrist Office #:: [phone] [facility] [place]/I[facility] Therapist:: Fabi Hayes Therapist Phone #:: [phone] Medications Home Medications cariprazine 4.5 mg capsule (Vraylar) 4.5 mg PO DAILY 07/19/23 clonidine HCl 0.3 mg tablet 0.6 mg PO DAILY 07/19/23 eszopiclone 2 mg tablet (Lunesta) 2 mg PO QHS 07/19/23 glipizide 10 mg tablet 10 mg PO BID 07/19/23 hydroxyzine HCl 50 mg tablet 50 mg PO TID 07/19/23 lamotrigine 150 mg tablet (Lamictal) 75 mg PO BID 07/19/23 lansoprazole 30 mg capsule,delayed release (Prevacid) 30 mg PO DAILY 07/19/23 meloxicam 15 mg tablet 15 mg PO DAILY 07/19/23 metformin 1,000 mg tablet 1,000 mg PO BID 07/19/23 methylphenidate HCl 10 mg tablet (Ritalin) 10 mg PO 4X/DAY 07/19/23 trazodone 100 mg tablet 100 mg PO QHS 07/19/23 venlafaxine 75 mg capsule,extended release 24 hr (Effexor XR) 75 mg PO DAILY 07/19/23 Plan Details Progress/Aftercare Plan Details:: Candi has responded well to treatment as evidenced by Candi consistently attending IOP sessions and her reduction of DSM-5 scores since admission. Candi was always attentive and receptive to learning during group and individual sessions. Candi actively applied coping skills outside of IOP and reports overall her mood is improved and she is functioning better than she was several months ago. Candi?s overall symptom reduction is 53% since admission with anger decreasing by 67%, depression decreasing by 60%, suicidal thoughts decreasing by 33%, and anxiety decreasing by 100%. Candi has increased self-confidence in her ability to manage stressors, emotions, and her distorted thinking patterns. Most importantly, Candi has gained self-compassion, become better at ?riding the wave?, and gained self-confidence. Candi will follow up with her outpatient providers, Dr. Limon, and Dr. Bravo. Strategies for Success:: 1. Opposite action! Continue to break that cycle of anxiety and depression by not letting emotions be the only drivers of your bus. 2. Remember that thoughts are thoughts NOT facts! You have power in if you give thoughts the time of day or not. 3. Ride the wave! Remember all emotions come and go, this will pass. 4. Self-compassion! You are human and you will make a mistake?BUT that doesn?t mean you are a failure or not good enough. Give yourself credit for all the wonderful things you do. 5. continue reaching out and avoid isolating as much as possible 6. Practice positive self-talk and remember the train metaphor (two options). 7. Remember progress isn?t linear! You may have a setback or bump in the road, but that doesn?t mean you?ve lost all progress. 8. self-reflection and self-awareness. 10. Live in the [place]!! Appointments Appointments/Referrals to Other Services:: 1. Follow up with Dr. Bravo on 09/05/23. 2. Dr. Limon for medication management. Last appointment was 08/21/23.
--- NOTE | 2023-09-01 09:00 | BH.SGPN.GN ---
Behaviors/Verbalizations/Mental Status: [Patient was alert and oriented, appropriately dressed and groomed. Eye contact was good, motor activity normal, speech within normal limits. Affect congruent, mood content. Thoughts linear, logical, no signs of hallucinations or delusions. Reviewed Patients symptom tracker and the patient reports moderate/severe in self-harm and thoughts of suicide, moderate in depression, and low in anxiety/panic attacks and agitation/irritability/anger. The patient reports no symptoms of risk of suicide. This is a little above normal for the client and will be checked in on to ensure safety. ] Client Response/Progress/Benefit: [Patient was engaged and open to the discussion. Patient reported her mood to be ?anxious?. Patients first win is that she is graduating the program today. Patient stated she was excited to be able to get her life back on a normal schedule. 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 Patient shared that her stressor is that she is going to miss coming to group and the good energy it brings. Patient was interactive and respectful with other group members about their mental wins and stressors. Patient benefited from the discussion by listening to feedback and giving input on her peer?s stressors and mental health wins. Patient is discharging today and will maintain healthy skills, mood stability, and distress tolerance. ] Narrative Note: []
--- NOTE | 2023-09-01 10:10 | BH.SGPN.GN ---
Behaviors/Verbalizations/Mental Status: []Pt alert and oriented, casually dressed and groomed. Eye contact good. Motor activity appropriate. Speech within normal limits. Affect constricted, mood euthymic. Thoughts linear, logical, no signs of hallucinations or delusions. Client Response/Progress/Benefit: [] Pt receptive to session AEB contributing to small group discussion, as well as listening attentively to others, and taking notes. Worked with group to brainstorm the positive and negative aspects of stress on physical and mental health. Group did well to identify the benefits of stress as well as the impact of distress on performance, relationships, and mental health. Pt identified their personal top stressors as: difficulty managing money, mental health functioning, and family/friends. Pt seemed to benefit from increased awareness of current stressors and impact stress has on mental health. Recommended to continue IOP tx to increase healthy coping skills, challenge negative/distorted thoughts, and prevent decompensation.
--- NOTE | 2023-09-01 10:15 | BH.SGPN.GN ---
Behaviors/Verbalizations/Mental Status: [Patient was alert and oriented, casually dressed and groomed. Eye contact good, motor activity normal, speech within normal limits. Affect congruent, mood content. Thoughts linear, logical, no signs of hallucinations or delusions. ] Client Response/Progress/Benefit: [Patient was open and participated in group discussions. Attentive during psychoeducation on stress. Participated during the activity. Interactive group discussion on stress in which group verbalized their current stresses in their lives and if certain stressors were larger than others. Patient shared when she feels stressed that she will feel shaky. Patient benefited from increased awareness of the effects of stress on their mental health. Will continue in IOP to promote gains, further combat distorted thinking, and improve daily functioning.] Narrative Note: []
--- NOTE | 2023-09-01 11:15 | BH.SGPN.GN ---
Behaviors/Verbalizations/Mental Status: []Pt alert and oriented, neatly dressed and groomed. Eye contact good. Motor activity appropriate. Speech within normal limits. Affect constricted, mood euthymic. Thoughts linear, logical, no signs of hallucinations or delusions. Client Response/Progress/Benefit: [] Pt was an active participant in group discussions and experiential activity. Was able to identify the connection between the experimental activity and utilization of stress management skills. Attentive during psychoeducation on the 4 A's (Avoid, adapt, alter, accept) of coping with stress as well as strategies to identify stressors in which one has no control, little control, or a great deal of control over. Pt shared plans to utilize the skill of avoid by continuing to reduce use of unhealthy coping skills and extra spending. Benefited from increased awareness of stress management strategies. Will discharge from IOP tx today as pt has accomplished her tx goals and no longer meets criteria for IOP level of care. ? Narrative Note: []
--- NOTE | 2023-09-01 15:00 | BH.DS_ITS ---
Discharge Summary Demographics Date of Admission:: 07/13/23 Discharge Date: 09/01/23 Presenting Problems at Admission:: Pt is a 38-year-old female with a history of Bipolar I disorder, TORSTEN, and alcohol use disorder in full remission. Pt was referred to [facility] tx by her outpatient psychiatrist, Dr. Limon, due to worsening depression with fleeting SI. Pt reports having fleeting SI with thoughts of methods, but pt shared I typically always reach out. Pt reports decompensation for the past several months, but has had mental health struggles for years. At admission, pt endorsed a depressed mood, decreased appetite, decreased sleep, low energy, anhedonia, hopelessness, and worthlessness. Pt also reported constant anxiety, grief, and more impulsive behaviors. Pt's mental health symptoms were impacting her overall functioning and relationships. Pt was not benefitting from traditional outpatient counseling alone. Discharge Diagnoses:: Bipolar 1 disorder, most recent episode depression, severe without psychosis F 31.4; Generalized anxiety disorder; Cluster B traits; ADHD; History of PTSD; Alcohol use disorder in full remission for 6 years Reason for Discharge:: Pt has completed her IOP tx goals AEB pt's reduction of DSM-5 symptoms by 53% since admission. Additionally, pt reports improved daily functioning, reduced negative thinking patterns, and improved self-worth. Pt will continue with outpatient counseling and see her psychiatrist for medication management. Treatment Progress During Treatment & Response: Pt has responded well to treatment as evidenced by Pt consistently attending IOP sessions and her reduction of DSM-5 scores since admission. Pt was always attentive and receptive to learning during group and individual sessions. Pt actively applied coping skills outside of IOP and reports overall her mood is improved and she is functioning better than she was several months ago. Pt?s overall symptom reduction is 53% since admission with anger decreasing by 67%, depression decreasing by 60%, suicidal thoughts decreasing by 33%, and anxiety decreasing by 100%. Pt has increased self- confidence in her ability to manage stressors, emotions, and her distorted thinking patterns. Most importantly, Pt has gained self-compassion, become better at ?riding the wave?, and gained self-confidence. Pt will follow up with her outpatient providers, Dr. Limon, and Dr. Bravo. Issues Still to be Addressed:: Mood instability, reducing use of unhealthy coping skills, communicating needs and negative thinking patterns, distress tolerance skills, and increasing self-confidence. Discharge Recommendations/Instructions:: Pt will follow up with Dr. Limon for medication management. Pt's last appointment was on 08/21/23. Pt also has an outpatient therapist, Dr. Bravo, who pt will see on 09/05/23 and will likely see weekly. Discharge Handout
== END 2023-09-01 12:02 | disposition home or self-care (01) ==
LOC: BHIOP 06:48
PROVIDERS: Referring Provider Psychiatry & Neurology Psychiatry; Visit Provider Psychiatry & Neurology Psychiatry
DX: F31.4 Bipolar disorder, current episode depressed, severe, without psychotic features (principal); F41.1 Generalized anxiety disorder; F90.9 Attention-deficit hyperactivity disorder, unspecified type; F43.10 Post-traumatic stress disorder, unspecified; F10.91 Alcohol use, unspecified, in remission
CPT/HCPCS: S9480; 90832; 90834; 90837; 90853

== ENCOUNTER 2025-01-14 08:00 | Outpatient (RCR) | payer OTHER, SELFPAY ==
[2025-01-15 09:44] VITALS: BP 139/85; PULSE 75
== END 2025-02-12 23:59 ==
LOC: BHIOP 08:00
PROVIDERS: PCP Family Medicine; Referring Provider Psychiatry & Neurology Psychiatry; Visit Provider Psychiatry & Neurology Psychiatry
DX: F31.31 Bipolar disorder, current episode depressed, mild (principal); F41.1 Generalized anxiety disorder; F60.3 Borderline personality disorder; F90.9 Attention-deficit hyperactivity disorder, unspecified type; F10.91 Alcohol use, unspecified, in remission
CPT/HCPCS: S9480; 90832; 90834; 90853

== ENCOUNTER 2025-02-13 07:34 | Outpatient (RCR) | payer OTHER, SELFPAY ==
[2025-02-13 00:42] VITALS: BP 139/85; PULSE 75
== END 2025-03-07 12:12 | disposition home or self-care (01) ==
LOC: BHIOP 07:34
PROVIDERS: PCP Family Medicine; Referring Provider Psychiatry & Neurology Psychiatry; Visit Provider Psychiatry & Neurology Psychiatry
DX: F31.31 Bipolar disorder, current episode depressed, mild (principal); F41.1 Generalized anxiety disorder; F60.3 Borderline personality disorder; F90.9 Attention-deficit hyperactivity disorder, unspecified type; F10.91 Alcohol use, unspecified, in remission
CPT/HCPCS: S9480; 90832; 90834; 90853